=== PATIENT | male | born 1955 | race African-American/Black ===

== ENCOUNTER 2022-04-09 08:34 | Outpatient (CLI) | payer BC, SELFPAY ==
--- NOTE | ~2022-04-09 | US_ITS ---
US abdomen complete EXAMINATION: US Abdomen Complete INDICATION: Secondary thrombocytopenia PROCEDURE: Realtime High Resolution abdomen ultrasound. COMPARISON: No prior studies for comparison FINDINGS: Gallbladder within normal limits. No gallstones, pericholecystic fluid, gallbladder wall t hickening or biliary dilatation. Common bile duct measures 4 mm. There is hepatosplenomegaly. Fatty infiltration of the liver. Spleen measures 13.4 cm. Pancreas withi n normal limits. Renal echotexture is within normal limits bilaterally without hydronephrosis, contou r deforming mass or renal stone. There is a 1.6 cm right renal cyst. Right kidney measures 11 cm. Lef t kidney measures 12.2 cm. Visualized aspects of the aorta and IVC are within normal limits. Portal vein is patent. No sonograph ic Olivares's sign indicated by the technologist. IMPRESSION: 1: Fatty infiltration of the liver with hepatosplenomegaly. Reviewed, dictated and finalized at location B.
== END 2022-04-09 08:35 | disposition home or self-care (01) ==
PROVIDERS: PCP Internal Medicine Infectious Disease; Visit Provider Internal Medicine Hematology & Oncology
DX: N28.1 Cyst of kidney, acquired (principal); K76.0 Fatty (change of) liver, not elsewhere classified; D69.59 Other secondary thrombocytopenia
CPT/HCPCS: 76700

== ENCOUNTER 2022-10-15 09:59 | Outpatient (CLI) | payer BC, SELFPAY ==
[2022-10-15 10:31] LABS: Basophils Percent Auto 0.8 % (0.2-1.2); Eosinophils Absolute Auto 0.3 K/mm3 (0-0.3); Eosinophils Percent Auto 5.6 % (0-4.4); Hematocrit 44.3 % (42.0-52.0); Hemoglobin 14.6 g/dL (14.0-18.0); Immature Granulocyte Absolute 0.01 K/mm3 (0.00-0.031); Immature Granulocyte Percent A 0.2 % (0-0.5); Immature Platelet Fraction Pct 10.7 % (0.9-11.2); Lymphocytes Absolute Auto 1.16 K/mm3 (0.9-3.2); Mean Corpuscular Volume 88.1 fl (80-100); Monocytes Absolute Auto 0.3 K/mm3 (0.1-0.6); Monocytes Percent Auto 6.6 % (2.6-8.5); Neutrophils Percent Auto 62.8 % (45.5-73.1); Platelet Count Result 99 k/mm3 (150-375); Red Blood Count 5.03 M/mm3 (4.6-6.20); Red Cell Distribution Width 13.3 % (11.5-14.5); White Blood Count 4.8 K/mm3 (4.5-10.0)
[2022-10-15 10:34] LABS: Blood Urea Nitrogen 13 mg/dL (8-26); Carbon Dioxide 27 mmol/L (22-30); Chloride 103 mmol/L (98-109); Estimated Glomerular Filt Rate > 60; Glucose 141 mg/dL (70-105); Ionized Calcium (POC) 1.26 mmol/L (1.11-1.31); Potassium 4.4 mmol/L (3.5-4.9); Sodium 141 mmol/L (138-146)
[2022-10-15 12:34] LABS: Alanine Aminotransferase 35 U/L (6-50); Albumin Level 4.4 g/dL (3.5-5.1); Alkaline Phosphatase 165 U/L (38-126); Anion Gap 6 mmol/L (8-16); Aspartate Amino Transferase 31 U/L (17-59); Bilirubin,Total 0.5 mg/dL (0.2-1.3); Blood Urea Nitrogen 14 mg/dL (9-20); Calcium 9.2 mg/dL (8.4-10.2); Carbon Dioxide 30 mmol/L (22-30); Chloride 102 mmol/L (98-107); Estimated Glomerular Filt Rate > 60; Glucose 139 mg/dL (65-110); Potassium 4.3 mmol/L (3.4-5.0); Sodium 138 mmol/L (137-145)
[2022-10-15 16:55] LABS: Iron 63 ug/dL (49-181)
[2022-10-15 17:06] LABS: Percent Iron Saturation 22 % (20-50)
== END 2022-10-15 10:00 | disposition home or self-care (01) ==
LOC: ANHLAB 09:59
PROVIDERS: PCP Internal Medicine Infectious Disease; Visit Provider Internal Medicine Hematology & Oncology
DX: D69.59 Other secondary thrombocytopenia (principal)
CPT/HCPCS: 36415; 80047; 80053; 82728; 83540; 83550; 85025; 85055

== ENCOUNTER 2023-04-15 10:52 | Outpatient (CLI) | payer BC, SELFPAY ==
[2023-04-15 11:13] LABS: Basophils Percent Auto 0.8 % (0.2-1.2); Eosinophils Absolute Auto 0.1 K/mm3 (0-0.3); Eosinophils Percent Auto 1.9 % (0-4.4); Hematocrit 45.8 % (42.0-52.0); Hemoglobin 15.1 g/dL (14.0-18.0); Immature Granulocyte Absolute 0.02 K/mm3 (0.00-0.031); Immature Granulocyte Percent A 0.4 % (0-0.5); Lymphocytes Absolute Auto 1.38 K/mm3 (0.9-3.2); Lymphocytes Percent Auto 26.7 % (18.3-44.2); Mean Corpuscular Hemoglobin 29.5 pg (26-34); Mean Corpuscular Volume 89.6 fl (80-100); Mean Platelet Volume 12.2 fl (7.4-10.4); Monocytes Absolute Auto 0.4 K/mm3 (0.1-0.6); Monocytes Percent Auto 7.5 % (2.6-8.5); Neutrophils Absolute Auto 3.2 K/mm3 (1.3-6.7); Neutrophils Percent Auto 62.7 % (45.5-73.1); Platelet Count Result 104 k/mm3 (150-375); Red Blood Count 5.11 M/mm3 (4.6-6.20); Red Cell Distribution Width 12.7 % (11.5-14.5); White Blood Count 5.2 K/mm3 (4.5-10.0)
[2023-04-15 11:18] LABS: Blood Urea Nitrogen 15 mg/dL (8-26); Carbon Dioxide 25 mmol/L (22-30); Chloride 104 mmol/L (98-109); Estimated Glomerular Filt Rate > 60; Glucose 96 mg/dL (70-105); Ionized Calcium (POC) 1.16 mmol/L (1.11-1.31); Potassium 4.4 mmol/L (3.5-4.9); Sodium 140 mmol/L (138-146)
[2023-04-15 16:38] LABS: Alanine Aminotransferase 34 U/L (6-50); Albumin Level 4.3 g/dL (3.5-5.1); Alkaline Phosphatase 141 U/L (38-126); Anion Gap 6 mmol/L (8-16); Aspartate Amino Transferase 30 U/L (17-59); Bilirubin,Total 0.8 mg/dL (0.2-1.3); Blood Urea Nitrogen 16 mg/dL (9-20); Calcium 9.2 mg/dL (8.4-10.2); Carbon Dioxide 30 mmol/L (22-30); Chloride 103 mmol/L (98-107); Estimated Glomerular Filt Rate > 60; Glucose 90 mg/dL (65-110); Potassium 4.5 mmol/L (3.4-5.0); Sodium 139 mmol/L (137-145)
== END 2023-04-15 10:53 | disposition home or self-care (01) ==
LOC: ANHLAB 10:56
PROVIDERS: PCP Internal Medicine Infectious Disease; Visit Provider Internal Medicine Hematology & Oncology
DX: D69.59 Other secondary thrombocytopenia (principal)
CPT/HCPCS: 36415; 80047; 80053; 85025

== ENCOUNTER 2024-02-28 08:14 | Outpatient (CLI) | payer BC, SELFPAY ==
[2024-02-28 08:48] LABS: Basophils Absolute Auto 0.1 K/mm3 (0.0-0.1); Basophils Percent Auto 0.9 % (0.2-1.2); Eosinophils Absolute Auto 0.4 K/mm3 (0-0.3); Eosinophils Percent Auto 6.8 % (0-4.4); Hematocrit 44.3 % (42.0-52.0); Immature Granulocyte Absolute 0.01 K/mm3 (0.00-0.031); Immature Granulocyte Percent A 0.2 % (0-0.5); Lymphocytes Absolute Auto 1.44 K/mm3 (0.9-3.2); Lymphocytes Percent Auto 25.7 % (18.3-44.2); Mean Corpuscular HGB Conc 33.9 g/dl (32-36); Mean Corpuscular Hemoglobin 29.6 pg (26-34); Mean Corpuscular Volume 87.4 fl (80-100); Mean Platelet Volume 12.1 fl (7.4-10.4); Monocytes Absolute Auto 0.4 K/mm3 (0.1-0.6); Monocytes Percent Auto 6.8 % (2.6-8.5); Neutrophils Absolute Auto 3.4 K/mm3 (1.3-6.7); Neutrophils Percent Auto 59.6 % (45.5-73.1); Platelet Count Result 103 k/mm3 (150-375); Red Blood Count 5.07 M/mm3 (4.6-6.20); Red Cell Distribution Width 12.8 % (11.5-14.5); White Blood Count 5.6 K/mm3 (4.5-10.0)
[2024-02-28 09:28] LABS: Alanine Aminotransferase 25 U/L (6-50); Albumin Level 4.4 g/dL (3.5-5.1); Alkaline Phosphatase 153 U/L (38-126); Anion Gap 8 mmol/L (4-12); Aspartate Amino Transferase 25 U/L (17-59); Bilirubin,Total 0.9 mg/dL (0.2-1.3); Blood Urea Nitrogen 15 mg/dL (9-20); Calcium 9.7 mg/dL (8.4-10.2); Carbon Dioxide 27 mmol/L (22-30); Chloride 106 mmol/L (98-107); Estimated Glomerular Filt Rate > 60; Glucose 97 mg/dL (65-110); Potassium 4.2 mmol/L (3.4-5.0); Sodium 141 mmol/L (137-145)
== END 2024-02-28 08:15 | disposition home or self-care (01) ==
LOC: ANHLAB 08:31
PROVIDERS: PCP Internal Medicine Infectious Disease; Visit Provider Internal Medicine Hematology & Oncology
DX: D69.59 Other secondary thrombocytopenia (principal)
CPT/HCPCS: 36415; 80053; 85025

== ENCOUNTER 2024-12-02 15:41 | Outpatient (CLI) | payer BC, OTHER, SELFPAY ==
[2024-12-02 15:58] LABS: Basophils Percent Auto 0.7 % (0.2-1.2); Eosinophils Absolute Auto 0.3 K/mm3 (0-0.3); Eosinophils Percent Auto 4.9 % (0-4.4); Hematocrit 41.8 % (42.0-52.0); Immature Granulocyte Absolute 0.01 K/mm3 (0.00-0.031); Immature Granulocyte Percent A 0.2 % (0-0.5); Lymphocytes Percent Auto 22.8 % (18.3-44.2); Mean Corpuscular HGB Conc 33.5 g/dl (32-36); Mean Corpuscular Hemoglobin 29.3 pg (26-34); Mean Corpuscular Volume 87.4 fl (80-100); Mean Platelet Volume 12.1 fl (7.4-10.4); Monocytes Absolute Auto 0.4 K/mm3 (0.1-0.6); Neutrophils Absolute Auto 3.7 K/mm3 (1.3-6.7); Neutrophils Percent Auto 64.4 % (45.5-73.1); Platelet Count Result 106 k/mm3 (150-375); Red Blood Count 4.78 M/mm3 (4.6-6.20); Red Cell Distribution Width 12.9 % (11.5-14.5); White Blood Count 5.7 K/mm3 (4.5-10.0)
--- OUTSIDE RECORDS SUMMARY | 2024-12-02 16:25 | XMS_ITS | Data Portability ---
Author Organization [facility] Vivi Meriad Address [address] [facility] [place] [address] Care Team Providers Care Tester Equipment Name Role Phone DARIUSZ STEPHENS Cripple Chaser MARGARETH SOTO Primary Care Provider [phone] Assessment No assessment recorded. Plan of Treatment Reminders Order Date Submit Date Provider Last Modified By Organization Details Last Modified Time Details Appointments ANY 15 2024 09:00A Darrion Soto MD Not available Not available Not available Lab alkaline phosphata se, serum or plasma 2021 022 [facility], [address] [place] [address], [facility] [address], [place], [address], 08/04/2022 06:10:16 hemoglobi n + hematocri t, blood 2021 022 [facility], [address] [place] [address], [facility] [address], [place], [address], 08/04/2022 06:10:18 platelets , auto, blood 2021 022 [facility], [address] [place] [address], [address], [place], [address], 08/04/2022 06:10:17 HbA1c (hemoglob in A1c), blood 2021 022 [facility], [address] [place], [place] [address]melvina Steele, [facility] [address], [place], [address], 08/04/2022 06:10:17 lipid panel, serum 2021 022 [facility], [facility], [address], [place], [address], 08/04/2022 06:10:15 alkaline phosphata se, bone-spec ific, serum 2022 023 [facility], [facility] [address], [address], [place], [address], 02/22/2023 15:10:51 5' nucleotid ase 2022 023 [facility], [address] [place], [place] [address]melvina Steele, [address], [place], [address], 02/22/2023 15:10:53 gamma-glu tamyl transfera se (ggt), serum 2022 023 [facility], [address] [place], [place] [address]melvina Steele, [address], [place], [address], 02/22/2023 15:10:53 basic metabolic 1998 panel, serum or plasma 2022 023 [facility], [facility] [address], [address], [place], [address], 02/19/2023 19:09:10 PSA, total, serum or plasma 2022 023 [facility], [address] [place], [place] [address]melvina Steele, [address], [place], [address], 02/22/2023 15:10:54 HbA1c (hemoglob in A1c), blood 2022 023 [facility], [address] [place], [place] [address]melvina Cedric, [address], [place], [address], 02/22/2023 15:10:52 lipid panel, serum 2022 023 [facility], [address], [address], [place], [address], 02/19/2023 19:09:09 potassium , serum or plasma 2022 023 [facility], [address], [address], [place], [address], 09/03/2023 06:18:14 hemoglobi n + hematocri t, blood 2022 023 [facility], [address], [address], [place], [address], 09/03/2023 06:18:14 creatinin e, serum or plasma 2022 023 [facility], [address], [address], [place], [address], 09/03/2023 06:17:50 HbA1c (hemoglob in A1c), blood 2022 023 [facility], [address], [address], [place], [address], 09/03/2023 06:17:51 lipid panel, serum 2022 023 [facility], [address], [address], [place], [address], 09/03/2023 06:18:12 PSA, total, serum or plasma 2023 024 [facility], [address], [address], [place], [address], 03/04/2024 13:11:12 HbA1c (hemoglob in A1c), blood 2023 024 [facility], [facility] [address], [address], [place], [address], 03/04/2024 13:11:11 lipid panel, serum 2023 024 [facility], [address] [place] [address], [address], [place], [address], 03/04/2024 13:11:10 albumin/c reatinine , mass ratio, urine 2023 024 [facility], [address] [place], [place] [address]melvina Cedric, [address], [place], [address], 03/04/2024 13:11:09 HbA1c (hemoglob in A1c), blood 2023 024 [facility], [address] [place] [address], [address], [place], [address], 09/03/2024 06:20:18 lipid panel, serum 2023 024 [facility], [address] [place] [address], [address], [place], [address], 09/03/2024 06:20:17 Referral diabetic ophthalmo logy referral - HBA1C 6.2 2022 023 [email or web address], [address], [place], [address], 03/11/2023 11:28:24 Procedures None recorded. Surgeries None recorded. Imaging XR, hand - Pain, left thumb [address] [facility] ([facility]), [address], [place], [address], 02/20/2023 17:54:17 MRI, cervical spine, w/o contrast - Worsening neck pain with DDD of the cervical spine and disc space narrowing [address] ([facility]), [address], [place], [address], 11/26/2024 09:52:23 Medication Orders Transderm -Scop 1 mg over 3 days transderm al patch 2022 023 [id number], [address] , [place], [id number], 03/03/2024 09:56:35 Patient TargetsNo targets recorded. Patient Instructions Encounter Date Encounter Id Patient Instructions Last Modified By Organization Details Last Modified Time 07/31/2022 [id number] influenza (flu) vaccine: care instructions oajao Not available 07/31/2022 11:41:46 body mass index: care instructions oajao Not available 07/31/2022 11:22:57 learning about healthy weight oajao Not available 07/31/2022 11:22:57 Labs Follow up i n 5 months and PRN oajao Not available 07/31/2022 11:30:28 02/18/2023 [id number] thrombocytopenia : care instructions oajao Not available 02/18/2023 10:06:37 type 2 diabetes: care instructions oajao Not available 02/18/2023 10:06:37 Labs Ophthalmolo gy (Scheduled) X-ray Follow up in 6 months and PRN [email or web address] Not available 02/18/2023 10:26:46 09/02/2023 [id number] influenza (flu) vaccine: care instructions oajao Not available 09/02/2023 10:09:02 A healthy lifestyle: care instructions oajao Not available 09/02/2023 10:04:20 type 2 diabetes: care instructions oajao Not available 09/02/2023 10:02:02 body mass index: care instructions oajao Not available 09/02/2023 10:04:15 learning about healthy weight oajao Not available 09/02/2023 10:04:15 Labs Follow up i n 6 months and PRN oajao Not available 09/02/2023 10:16:31 03/03/2024 [id number] type 2 diabetes: care instructions oajao Not available 03/03/2024 10:04:08 Labs Follow up i n 6 months and PRN oajao Not available 03/03/2024 10:04:19 09/02/2024 [id number] A healthy lifestyle: care instructions oajao Not available 09/02/2024 10:26:02 cervical disc disease: care instructions oajao Not available 09/02/2024 10:29:53 Tetanus Immunization records from [facility] Follow up in 5 months and PRN oajao Not available 09/02/2024 10:32:01 Reason for Referral Diabetic Ophthalmology Refer ral for Type 2 diabetes mellitus without complication DM HBA1C 6.2 Referring Physician: Margareth Soto, Internal Medicine, Encounter Date: 02/18/2023 Results Created Date Observation Date Name Description Value Unit Range Abnormal Flag Note LastModifiedBy Organization Detail LastModifiedTime 08/02/20 22 08/03/2022 LIPID PANEL cholesterol, total 127 mg/dL 100-19 9 Not Available [facility] ([facility]) [address] [place], [address], 08/04/2022 06:10:15 08/02/20 22 08/03/2022 LIPID PANEL triglyceride s 104 mg/dL 0-149 Not Available [facility] ([facility]) [address] [place], [address], 08/04/2022 06:10:15 08/02/20 22 08/03/2022 LIPID PANEL HDL cholesterol 47 mg/dL >39 Not Available [facility] ([facility]) [address] [facility], [place], [address], 08/04/2022 06:10:15 08/02/20 22 08/03/2022 LIPID PANEL VLDL cholesterol mariella 19 mg/dL 5-40 Not Available [facility] ([facility]) [address] [place], [address], 08/04/2022 06:10:15 08/02/20 22 08/03/2022 LIPID PANEL LDL chol calc ([facility]) 61 mg/dL 0-99 Not Available [facility] ([facility]) [address] [facility], [place], [address], 08/04/2022 06:10:15 08/02/20 22 08/04/2022 HEMOG LOBIN A1C hemoglobin A1C 6.2 % 4.8-5. 6 above high normal Predi abete s: 5.7 - 6.4 Diabe lynette: >6.4 Glyce mercedes contr ol for adult s with diabe lynette: <7.0 Not Available [facility] ([facility]) [address] [facility], [place], [address], 08/04/2022 06:10:17 08/02/20 22 08/03/2022 HGB+H CT hemoglobin 14.9 g/dL 13.0-1 7.7 Not Available [facility] ([facility]) [address] [facility], [place], [address], 08/04/2022 06:10:18 08/02/20 22 08/03/2022 HGB[address]H [address] hematocrit 43.0 % 37.5-5 1.0 Not Available [facility] ([facility]) [address] [facility], [place], [address], 08/04/2022 06:10:18 08/02/20 22 08/03/2022 PLATE LET COUNT platelets 112 x10e3 /uL 150-45 0 below low normal Actua l plate let count may be somew hat highe r than repor jace due to aggre gatio n of plate lets in this sampl e. Not Available [facility] ([facility]) [address] [place], [address], 08/04/2022 06:10:17 08/02/20 22 08/03/2022 PLATE LET COUNT hematology comments: NOTE: Verif ied by micro scopi c exami natio n. Not Available [facility] ([facility]) [address] [facility] [place], [address], 08/04/2022 06:10:17 08/02/20 22 08/03/2022 ALKAL INE PHOSP HATAS E alkaline phosphatase 127 IU/L 44-121 above high normal Not Available [facility] ([facility]) [address] [facility] [place], [address], 08/04/2022 06:10:16 08/02/20 22 08/04/2022 DIABE LYNETTE PATIE NT EDUCA TION pdf . Not Available [facility] ([facility]) [address] [facility] [place], [address], 08/04/2022 06:10:16 02/20/20 23 02/19/2023 LIPID PANEL cholesterol, total 128.2 mg/dL 140.0- 200.0 below low normal Not Available [facility] ([facility]) [address] [place], [address], 02/19/2023 19:09:09 02/20/20 23 02/19/2023 LIPID PANEL triglyceride s 100 mg/dL <=150 Not Available [facility] ([facility]) [address] [place], [address], 02/19/2023 19:09:09 02/20/20 23 02/19/2023 LIPID PANEL HDL cholesterol 50.1 mg/dL 40.0-1 00.0 Not Available [facility] ([facility]) [address] [place], [address], 02/19/2023 19:09:09 02/20/20 23 02/19/2023 LIPID PANEL VLDL cholesterol mariella 20.00 mg/dL 5.00-4 0.00 Not Available [facility] ([facility]) [address] [place], [address], 02/19/2023 19:09:09 02/20/20 23 02/19/2023 LIPID PANEL LDL chol calc ([facility]) 59.5 Not Available [facility] ([facility]) [address] [place], [address], 02/19/2023 19:09:09 02/20/20 23 02/19/2023 BASIC METAB OLIC PANEL (7) glucose 98 mg/dL 65-99 Not Available [facility] ([facility]) [address] [place], [address], 02/19/2023 19:09:10 02/20/20 23 02/19/2023 BASIC METAB OLIC PANEL (7) BUN 19 mg/dL 8-26 Not Available [facility] ([facility]) [address] [place], [address], 02/19/2023 19:09:10 02/20/20 23 02/19/2023 BASIC METAB OLIC PANEL (7) creatinine 1.30 mg/dL 0.50-1 .40 Not Available [facility] ([facility]) [address] [place], [address], 02/19/2023 19:09:10 02/20/20 23 02/19/2023 BASIC METAB OLIC PANEL (7) eGFR 61 mL/mi n/1.7 3 >=60 Not Available [facility] ([facility]) [address] [place], [address], 02/19/2023 19:09:10 02/20/20 23 02/19/2023 BASIC METAB OLIC PANEL (7) BUN/creatini ne ratio 14.8 Not Available [facility] ([facility]) [address] [place], [address], 02/19/2023 19:09:10 02/20/20 23 02/19/2023 BASIC METAB OLIC PANEL (7) sodium 141.0 mmol/ L 136.0- 144.0 Not Available [facility] ([facility]) [address] [place], [address], 02/19/2023 19:09:10 02/20/20 23 02/19/2023 BASIC METAB OLIC PANEL (7) potassium 4.3 mmol/ L 3.5-5. 3 Not Available [facility] ([facility]) [address] [place], [address], 02/19/2023 19:09:10 02/20/20 23 02/19/2023 BASIC METAB OLIC PANEL (7) chloride 104 mmol/ l 101-11 1 Not Available [facility] ([facility]) [address] [place], [address], 02/19/2023 19:09:10 02/20/20 23 02/19/2023 BASIC METAB OLIC PANEL (7) carbon dioxide, total 23.6 mmol/ L 21.0-3 2.0 Not Available [facility] ([facility]) [address] [place], [address], 02/19/2023 19:09:10 02/20/20 23 02/21/2023 ALK PHOSP HATAS E, BONE SPECI FIC alk phosphatase, bone specific 11.6 ug/L 7.6-25 .1 Not Available [facility] ([facility]) [address] [place], [address], 02/22/2023 15:10:51 02/20/20 23 02/21/2023 ALK PHOSP HATAS E, BONE SPECI FIC pdf . Not Available [facility] ([facility]) [address] [place], [address], 02/22/2023 15:10:51 02/20/20 23 02/20/2023 HEMOG LOBIN A1C hemoglobin A1C 5.9 % 4.8-5. 6 above high normal Predi abete s: 5.7 - 6.4 Diabe lynette: >6.4 Glyce mercedes contr ol for adult s with diabe lynette: <7.0 Not Available [facility] ([facility]) [address] [facility], [place], [address], 02/22/2023 15:10:52 02/20/2002/22/2023 5' NUCLE OTIDA SE 5' nucleotidase 4 IU/L 0-11 Not Available [facility] ([facility]) [address] [facility], [place], [address], 02/22/2023 15:10:53 02/20/2002/20/2023 GGT GGT 39 IU/L 0-65 Not Available [facility] ([facility]) [address] [facility], [place], [address], 02/22/2023 15:10:53 02/20/2002/20/2023 PROST ATE-S PECIF IC AG prostate specific Ag 1.5 NG/mL 0.0-4. 0 Cristin ECLIA metho dolog y. Accor ding to the Ameri can Urolo gical Assoc iatio n, Serum PSA shoul d decre ase and remai n at undet ectab le level s after radic al prost atect danyelle. The AUA defin es bioch emica l recur rence as an initi al PSA value 0.2 ng/mL or great er follo wed by a subse quent confi rmato ry PSA value 0.2 ng/mL or great er. Value s obtai lilibeth with diffe rent assay metho ds or kits canno t be used inter [place] eably . Resul ts canno t be inter prete d as absol [place] evide nce of the prese nce or absen ce of patti topete se. Not Available [facility] ([facility]) [address] [facility], [place], [address], 02/22/2023 15:10:54 02/20/2002/21/2023 DIABE LYNETTE PATIE NT EDUCA TION pdf NOT APPLIC ABLE Not Available [facility] ([facility]) [address] [facility], [place], [address], 02/22/2023 15:10:52 02/20/2002/21/2023 DIABE LYNETTE PATIE NT EDUCA TION pdf .* Not Available [facility] ([facility]) [address] [facility], [place], [address], 02/22/2023 06:15:26 02/20/20 23 02/20/2023 DIABE LYNETTE PATIE NT EDUCA TION pdf .* Not Available [facility] ([facility]) [address] [facility], [place], [address], 02/20/2023 06:12:27 02/20/2002/19/2023 DIABE LYNETTE PATIE NT EDUCA TION pdf . Not Available [facility] ([facility]) [address] [facility], [place], [address], 02/19/2023 19:09:11 09/02/2009/03/2023 CREAT ININE creatinine 1.14 mg/dL 0.76-1 .27 Not Available [facility] & [address], [address], 09/03/2023 06:17:50 09/02/2009/03/2023 CREAT ININE eGFR 71 mL/mi n/1.7 3 >59 Not Available [facility] & [address], [address], 09/03/2023 06:17:50 09/02/2009/03/2023 HEMOG LOBIN A1C hemoglobin A1C 6.1 % 4.8-5. 6 above high normal Predi abete s: 5.7 - 6.4 Diabe lynette: >6.4 Glyce mercedes contr ol for adult s with diabe lynette: <7.0 Not Available [facility] [address] [place] [address], [address], 09/03/2023 06:17:51 09/02/20 23 09/02/2023 LIPID PANEL cholesterol, total 144 mg/dL 100-19 9 Not Available [address], [address], 09/03/2023 06:18:12 09/02/20 23 09/02/2023 LIPID PANEL triglyceride s 90 mg/dL 0-149 Not Available [address], [address], 09/03/2023 06:18:12 09/02/20 23 09/02/2023 LIPID PANEL HDL cholesterol 51 mg/dL 40-999 Not Available [address], [address], 09/03/2023 06:18:12 09/02/20 23 09/02/2023 LIPID PANEL VLDL cholesterol mariella 18 mg/dL 5-40 Not Available [address], [address], 09/03/2023 06:18:12 09/02/20 23 09/02/2023 LIPID PANEL LDL chol calc ([facility]) 87 mg/dL 0-99 Not Available [address], [address], 09/03/2023 06:18:12 09/02/20 23 09/02/2023 POTAS SIUM potassium 4.3 mmol/ L 3.5-5. 2 Not Available [address], [address], 09/03/2023 06:18:13 09/02/20 23 09/02/20[address] hemoglobin 15.4 g/dL 13.0-1 7.7 Not Available [address], [address], 09/03/2023 06:18:14 09/02/20 23 09/02/2023 H[address] hematocrit 46.8 % 37.5-5 1.0 Not Available [facility] [address] [place] [address], [address], 09/03/2023 06:18:14 09/02/2009/03/2023 DIABE LYNETTE PATIE NT EDUCA TION pdf NOT APPLIC ABLE Not Available [address], [address], 09/03/2023 06:17:49 09/02/20 23 09/03/2023 DIABE LYNETTE PATIE NT EDUCA TION pdf . Not Available [address], [address], 09/03/2023 06:18:13 03/03/20 24 03/04/2024 ALBUM IN/CR EATIN INE RATIO ,URIN E creatinine, urine 62.3 mg/dL notest ab. Not Available [facility] ([facility]) [address] [place], [address], 03/04/2024 13:11:09 03/03/20 24 03/04/2024 ALBUM IN/CR EATIN INE RATIO ,URIN E albumin, urine <3.0 ug/mL notest ab. Not Available [facility] ([facility]) [address] [place], [address], 03/04/2024 13:11:09 03/03/20 24 03/04/2024 ALBUM IN/CR EATIN INE RATIO ,URIN E alb/creat ratio <5 Niki l: 0 - 29 Moder ately incre ased: 30 - 300 Sever donn incre ased: >300 Not Available [facility] ([facility]) [address] [place], [address], 03/04/2024 13:11:09 03/03/20 24 03/04/2024 LIPID PANEL cholesterol, total 122 mg/dL 100-19 9 Not Available [facility] ([facility]) [address] [facility] [place], [address], 03/04/2024 13:11:10 03/03/20 24 03/04/2024 LIPID PANEL triglyceride s 90 mg/dL 0-149 Not Available [facility] ([facility]) [address] [facility], [place], [address], 03/04/2024 13:11:10 03/03/20 24 03/04/2024 LIPID PANEL HDL cholesterol 51 mg/dL >39 Not Available [facility] ([facility]) [address] [facility], [place], [address], 03/04/2024 13:11:10 03/03/20 24 03/04/2024 LIPID PANEL VLDL cholesterol mariella 17 mg/dL 5-40 Not Available [facility] ([facility]) [address] [place], [address], 03/04/2024 13:11:10 03/03/20 24 03/04/2024 LIPID PANEL LDL chol calc ([facility]) 54 mg/dL 0-99 Not Available [facility] ([facility]) [address] [facility], [place], [address], 03/04/2024 13:11:10 03/03/20 24 03/04/2024 HEMOG LOBIN A1C hemoglobin A1C 5.9 % 4.8-5. 6 above high normal Predi abete s: 5.7 - 6.4 Diabe lynette: >6.4 Glyce mercedes contr ol for adult s with diabe lynette: <7.0 Not Available [facility] ([facility]) [address] [place], [address], 03/04/2024 13:11:11 03/03/20 24 03/04/2024 PROST ATE-S PECIF IC AG prostate specific Ag 1.5 NG/mL 0.0-4. 0 Cristin ECLIA metho dolog y. Accor ding to the Ameri can Urolo gical Assoc iatio n, Serum PSA shoul d decre ase and remai n at undet ectab le level s after radic al prost atect danyelle. The AUA defin es bioch emica l recur rence as an initi al PSA value 0.2 ng/mL or great er follo wed by a subse quent confi rmato ry PSA value 0.2 ng/mL or great er. Value s obtai lilibeth with diffe rent assay metho ds or kits canno t be used inter [place] eably . Resul ts canno t be inter prete d as absol [place] evide nce of the prese nce or absen ce of [facility] se. Not Available [facility] ([facility]) [address] [place], [address], 03/04/2024 13:11:12 09/02/20 24 09/03/2024 LIPID PANEL cholesterol, total 120 mg/dL 100-19 9 Not Available [facility] ([facility]) [address] [place], [address], 09/03/2024 06:20:17 09/02/20 24 09/03/2024 LIPID PANEL triglyceride s 75 mg/dL 0-149 Not Available [facility] ([facility]) [address] [place], [address], 09/03/2024 06:20:17 09/02/20 24 09/03/2024 LIPID PANEL HDL cholesterol 51 mg/dL >39 Not Available [facility] ([facility]) [address] [place], [address], 09/03/2024 06:20:17 09/02/20 24 09/03/2024 LIPID PANEL VLDL cholesterol mariella 15 mg/dL 5-40 Not Available [facility] ([facility]) [address] [place], [address], 09/03/2024 06:20:17 09/02/20 24 09/03/2024 LIPID PANEL LDL chol calc ([facility]) 54 mg/dL 0-99 Not Available [facility] ([facility]) [address], [place], [address], 09/03/2024 06:20:17 09/02/20 24 09/02/2024 HEMOG LOBIN A1C hemoglobin A1C 6.1 % 4.8-5. 6 above high normal Predi abete s: 5.7 - 6.4 Diabe lynette: >6.4 Glyce mercedes contr ol for adult s with diabe lynette: <7.0 Not Available [facility] ([facility]) [address], [place], [address], 09/03/2024 06:20:18 07/19/20 22 07/10/2022 sleep study , diagn ostic (PROC ) No observ ation record ed. [facility] [address], [place], [address], 07/31/2022 11:29:06 02/21/20 23 02/19/2023 XR, hand No observ ation record ed. [facility] [address] [place], [address], 09/02/2023 09:59:15 03/31/20 24 03/27/2024 trans -thor acic echoc ardio gram (TTE) (PROC ) No observ ation record ed. [facility] [address], [place], [address], 09/02/2024 10:22:08 04/20/20 24 04/20/2024 myoca rdial perfu laura study w/ eject ion fract ion (PROC ) No observ ation record ed. [facility] [address], [place], [address], 09/02/2024 10:22:08 04/20/20 24 04/20/2024 cardi ac stres s test No observ ation record ed. [facility] [address], [place], [address], 09/02/2024 10:22:08 Result Notes None recorded. Problems Name Problem SNOMED Code Status Onset Date Resolution Date Notes Provider Name and Address Organization Details Recorded Time Obstructiv e sleep apnea syndrome 83862489 Active 2018 Not Available [facility] 3 18:17:50 History of syncope 7050571922236 09 Active 2018 Not Available [facility] 3 18:17:50 Adenomatou s polyp of colon 524914604 Active 2018 Not Available [facility] 3 18:17:50 Retrolisth esis 741995723 Active 2020 Not Available [facility] 3 18:17:50 Thrombocyt openic disorder 151615774 Active 2021 Not Available [facility] 3 18:17:50 Polyp of colon 57414718 Active Not Available [facility] 3 18:17:50 Essential hypertensi on 35162039 Active Not Available [facility] 3 18:17:50 Diabetes mellitus 09276701 Active Not Available [facility] 3 18:17:50 Abdominal pain 09463936 Active Not Available [facility] 3 18:17:50 Benign prostatic hyperplasi a 809537482 Active Not Available [facility] 3 18:17:50 Atrial fibrillati on 94845504 Active Not Available [facility] 3 18:17:50 Non-alcoho lic fatty liver 418574155 Active Not Available [facility] 3 18:17:50 Disorder of lipid metabolism 961561081 Active Not Available [facility] 3 18:17:50 Genital herpes simplex 80779889 Active Not Available [facility] 3 18:17:50 Impotence of organic origin Active Not Available [facility] 3 18:17:50 Sleep apnea 65674452 Active Not Available [facility] 3 18:17:50 Chest pain 56676933 Active Not Available [facility] 3 18:17:50 Numbness of foot 765598069 Active Not Available [facility] 3 18:17:50 Platelet count below reference range 458757740 Active Not Available [facility] 3 18:17:50 Type 2 diabetes mellitus without complicati on 365203877 Active Not Available [facility] 3 18:17:50 Problem Notes None recorded. Procedures Surgical History Date Name Laterality Status Provider Name and Address Organization Details Recorded Time 03/03/20 24 Diabetic Foot Exam completed Margareth oSto MD Attn: Accounting,[address] [facility], [place], [address], [facility] - [place] 03/03/2024 10:48:59 09/19/20 20 Colonoscopy completed Margareth Soto MD Attn: Accounting,[address] [facility], [place], [address], [facility] - [place] 03/07/2021 12:36:46 04/18/20 16 colonoscopy completed Margareth Soto MD Attn: Accounting,[address] [facility], [place], [address], [facility] - [place] 02/01/2020 09:40:15 08/24/20 11 colonoscopy completed Margareth Soto MD Attn: Accounting,[address] [facility], [place], [address], [facility] - [place] 02/01/2020 09:36:04 laparoscopic appendectomy completed Latrice Perez [place] - [place] 03/10/2019 15:21:18 Imaging Results Imaging Date Name Status LastModified by Organization Details LastModified Time 07/10/2022 sleep study, diagnostic (PROC) completed [facility] [address], [place], [address], 07/31/2022 11:29:06 02/19/2023 XR, hand completed [facility] [address] [place], [address], 09/02/2023 09:59:15 03/27/2024 trans-thoracic echocardiogram (TTE) (PROC) completed [facility] [address], [place], [address], 09/02/2024 10:22:08 04/20/2024 myocardial perfusion study w/ ejection fraction (PROC) completed [facility] [address], [place], [address], 09/02/2024 10:22:08 04/20/2024 cardiac stress test completed [facility] [address], [place], [address], 09/02/2024 10:22:08 Procedure Notes None recorded. Medical Equipment None Reported. Allergies Allergen ID Allergen Name Allergen Category Reaction Reaction Severity Criticality Documentation Date Start Date Code Code System Note Provider Name and Address Organization Details Recorded Time [id number] No known allergy (situatio n) Not available Not available Not available Not available 09/02/2023 [id number] SNOMED Not Available Not Available Not Available No known drug allergies Medications Name Sig Start Date Stop Date Status Note LastModified by Organization Details LastModified Time Prescriptio n - New active Not Available Not Available Not Available Prescriptio n - Prior Authorizati on Request active Not Available Not Available N ot Available atorvastati n 40 mg tablet TAKE 1 TABLET DAILY AT BEDTIME (TO REPLACE SIMVASTAT IN) active Not Available Not Available No t Available metformin 500 mg tablet TAKE 1 TABLET TWICE A DAY active Not Available Not Available No t Available prednisone 10 mg tablet TAKE 1 TABLET BY MOUTH THREE TIMES DAILY FOR 3 DAYS 1 TABLET TWICE DAILY FOR 2 DAYS 1 TABLET EVERY DAY FOR 1 DAY 09/02 completed Not Available Not Available Not Available Toprol XL 25 mg tablet,exte nded release TAKE 1 TABLET DAILY 04/14 completed Not Available Not Available Not Available valacyclovi r 1 gram tablet One po daily 02/13 completed Not Available Not Available Not Available hydrocodone 5 mg-acetamin ophen 325 mg tablet 01/12 completed Not Available Not Available Not Available prednisone 20 mg tablet 01/31 completed Not Available Not Available Not Available Generlac 10 gram/15 mL oral solution active Not Available Not Available Not Available acetaminoph en 300 mg-codeine 30 mg tablet 02/17 completed Not Available Not Available Not Available ciprofloxac in 500 mg tablet Take 1 tablet twice a day by oral route for 7 days. 09/01 completed Not Available Not Available Not Available peg-electro lyte solution 420 gram oral solution 10/04 completed Not Available Not Available Not Available oxycodone-a cetaminophe n 5 mg-325 mg tablet 03/10 completed Not Available Not Available Not Available tamsulosin 0.4 mg capsule TAKE 1 CAPSULE DAILY 2023 active Not Available Not Available Not Avai lable [employer] Ultra Test strips active Not Available Not Available Not Available cephalexin 500 mg capsule TAKE BY MOUTH FOUR TIMES DAILY 09/02 completed Not Available Not Available Not Available simvastatin 20 mg tablet TAKE 1 TABLET DAILY 03/10 completed Not Available Not Available Not Available acyclovir 5 % topical ointment active Not Available Not Available Not Available clotrimazol e-betametha sone 1 %-0.05 % topical cream APPLY TO THE AFFECTED AND SURROUNDI NG AREAS OF SKIN BY TOPICAL ROUTE 2 TIMES PER DAY IN THE MORNING AND EVENING FOR 2 WEEKS 01/31 completed Not Available Not Available Not Available omeprazole 20 mg capsule,del ayed release TAKE 1 CAPSULE BY MOUTH EVERY DAY DIRECTED active Not Available Not Available No t Available bisacodyl 5 mg tablet,junior yed release TAKE 6 TABLETS BY MOUTH AT 9 AM ON 09/18. 02/13 completed Not Available Not Available Not Available lisinopril 5 mg tablet TAKE 1 TABLET DAILY active Not Available Not Available No t Available scopolamine 1 mg over 3 days transdermal patch APPLY 1 PATCH TOPICALLY TO THE SKIN EVERY 72 HOURS FOR 12 DAYS NEEDED 03/03 completed Not Available Not Available Not Available amoxicillin 875 mg-potassiu m clavulanate 125 mg tablet Take 1 tablet every 12 hours by oral route as directed for 7 days. 01/31 completed Not Available Not Available Not Available tadalafil 5 mg tablet TAKE 1 TABLET DAILY active Not Available Not Available No t Available Cialis 20 mg tablet Take 1 tablet every 72 hours by oral route as needed for 30 days. 10/04 completed Not Available Not Available Not Available metoprolol tartrate 25 mg tablet active Not Available Not Available No t Available aspirin 81 mg po daily 07/31 completed Not Available Not Available Not Available iron active Not Available Not Availa ble Not Available Vitamin D3 active Not Available Not Av ailable Not Available peg 3350-electr olytes 236 gram-22.74 gram-6.74 gram-5.86 gram solution 02/13 completed Not Available Not Available Not Available Flowflex COVID-19 Antigen Home Test kit 02/18 completed Not Available Not Available Not Available Vitals Date Recorded Body height Provider Name an d Address Organization Details Last Updated DateTime 07/31/2022 172.72 cm [address]rice Perez MA [facility] 022 11:05:54 Date Recorded Body mass index (BMI) Body weight Provider Name and Address Organization Details Last Updated DateTime 07/31/2022 37.4 kg/m2 769787.72 g Latrice Perez MA [facility] 07/31/2022 11:06:01 Date Recorded Respiratory rate Provider Name a nd Address Organization Details Last Updated DateTime 07/31/2022 14 /min Latrice Powersver JAEL [facility] 022 11:08:58 Date Recorded Heart rate Provider Name an d Address Organization Details Last Updated DateTime 07/31/2022 80 /min Latrice AnaJAEL rogers [facility] 022 11:09:06 Date Recorded Oxygen saturation Oxygen saturation in Arterial blood by Pulse oximetry Provider Name and Address Organization Details Last Updated DateTime 07/31/2022 96 % 96 % Latrice Ana JAEL [facility] 07/31/2022 11:09:09 Date Recorded Body temperature Provider Name a nd Address Organization Details Last Updated DateTime 07/31/2022 98.6 [degF] Latrice AnaJAEL rogers [facility] 2021 11:09:52 Date Recorded Body height Provider Name an d Address Organization Details Last Updated DateTime 02/18/2023 172.[address] [facility] 023 09:45:29 Date Recorded Body mass index (BMI) Body weight Provider Name and Address Organization Details Last Updated DateTime 02/18/2023 38.6 kg/m2 818010.[address] [facility] 02/18/2023 09:45:38 Date Recorded Oxygen saturation Oxygen saturation in Arterial blood by Pulse oximetry Provider Name and Address Organization Details Last Updated DateTime 02/18/2023 98 % 98 % JAEL Pride [facility] 02/18/2023 09:48:11 Date Recorded Heart rate Respiratory rate Provider N alexandra and Address Organization Details Last Updated DateTime 02/18/2023 64 /min 14 /min Latrice [place] [facility] 02/18/2023 09:48:14 Date Recorded Body height Provider Name an d Address Organization Details Last Updated DateTime 09/02/2023 172.72 cm Latrice Perez MA [facility] 023 09:44:02 Date Recorded Body mass index (BMI) Body weight Provider Name and Address Organization Details Last Updated DateTime 09/02/2023 38.3 kg/m2 768452.56 g Latrice Perez MA [facility] 09/02/2023 09:45:48 Date Recorded Oxygen saturation Oxygen saturation in Arterial blood by Pulse oximetry Provider Name and Address Organization Details Last Updated DateTime 09/02/2023 96 % 96 % Latrice [place] [facility] 09/02/2023 09:47:02 Date Recorded Heart rate Provider Name an d Address Organization Details Last Updated DateTime 09/02/2023 64 /min Latrice [place] [facility] 023 09:47:04 Date Recorded Respiratory rate Provider Name a nd Address Organization Details Last Updated DateTime 09/02/2023 16 /min Latrice AnaJAEL rogers [facility] 023 09:47:05 Date Recorded Body height Provider Name an d Address Organization Details Last Updated DateTime 03/03/2024 172.72 cm Latrice Perez MA [facility] 024 09:30:15 Date Recorded Body mass index (BMI) Body weight Provider Name and Address Organization Details Last Updated DateTime 03/03/2024 37.6 kg/m2 596473.32 g JAEL Pride [facility] 03/03/2024 09:30:23 Date Recorded Respiratory rate Provider Name a nd Address Organization Details Last Updated DateTime 03/03/2024 18 /min Latrice AnaJAEL rogers [facility] 024 09:31:58 Date Recorded Oxygen saturation Oxygen saturation in Arterial blood by Pulse oximetry Provider Name and Address Organization Details Last Updated DateTime 03/03/2024 97 % 97 % Latrice Perez MA [facility] 03/03/2024 09:32:09 Date Recorded Heart rate Provider Name an d Address Organization Details Last Updated DateTime 03/03/2024 60 /min Latrice Perez MA [facility] 024 09:32:11 Date Recorded Body height Provider Name an d Address Organization Details Last Updated DateTime 09/02/2024 172.72 cm Norma Hansen MA [facility] 09/02/2024 09:55:31 Date Recorded Body mass index (BMI) Body weight Provider Name and Address Organization Details Last Updated DateTime 09/02/2024 36.9 kg/m2 842725.15 g Norma Hansen MA [facility] 09/02/2024 10:01:05 Date Recorded Heart rate Provider Name an d Address Organization Details Last Updated DateTime 09/02/2024 66 /min Norma Hansen MA [facility] 08/06 10:04:34 Date Recorded Oxygen saturation Oxygen saturation in Arterial blood by Pulse oximetry Provider Name and Address Organization Details Last Updated DateTime 09/02/2024 97 % 97 % Norma Hansen MA [facility] 09/02/2024 10:04:36 Date Recorded Systolic blood pressure Diastolic blood pressure Provider Name and Address Organization Details Last Updated DateTime 07/31/2022 124 mm[Hg] 80 mm[Hg] Latrice Perez MA [facility] 07/31/2022 11:08:51 Date Recorded Systolic blood pressure Diastolic blood pressure Provider Name and Address Organization Details Last Updated DateTime 02/18/2023 120 mm[Hg] 76 mm[Hg] Latrice Perez MA [facility] 02/18/2023 09:48:10 Date Recorded Systolic blood pressure Diastolic blood pressure Provider Name and Address Organization Details Last Updated DateTime 09/02/2023 114 mm[Hg] 80 mm[Hg] Latrice Perez MA [facility] 09/02/2023 09:46:49 Date Recorded Systolic blood pressure Diastolic blood pressure Provider Name and Address Organization Details Last Updated DateTime 03/03/2024 120 mm[Hg] 84 mm[Hg] Latrice ePrez MA [facility] 03/03/2024 09:31:56 Date Recorded Systolic blood pressure Diastolic blood pressure Provider Name and Address Organization Details Last Updated DateTime 09/02/2024 126 mm[Hg] 72 mm[Hg] Norma Hansen MA [facility] 09/02/2024 10:04:23 Social History Question Answer Notes LastModified by Organizat ion Details LastModified Time Tobacco Smoking Status Former Smoker February JAEL [place], [place] - [facility] 02/16/2015 10:15:57 Do You Have An Advance Directive? No Information not available 02/16/2015 What Is Your Level Of Alcohol Consumption? None Information not available 02/16/2015 Are You Blind Or Do You Have Difficulty Seeing? No Information not available 03/06/2021 What Is Your Level Of Caffeine Consumption? Occasional Information not available 02/13/2021 How Much Tobacco Do You Chew? None Information not available 02/16/2015 In The 14 Days Before Symptom Onset, Have You Had Close Contact With A Laboratory-confi rmed COVID-19 While That Case Was Ill? No Information not available 02/13/2021 In The 14 Days Before Symptom Onset, Have You Had Close Contact With A Person Who Is Under Investigation For COVID-19 While That Person Was Ill? No Information not available 02/13/2021 Have You Been To An Area Known To Be High Risk For COVID-19? Yes Information not available 02/13/2021 Are You Deaf Or Do You Have Serious Difficulty Hearing? No Information not available 03/06/2021 What Type Of Diet Are You Following? 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 No Information not available 02/16/2015 Hard Of Hearing Or Deaf In One Or Both Ears? No Information not available 02/16/2015 Legally Blind In One Or Both Eyes? No Information not available 02/16/2015 Marital Status Informatio n not available 02/16/2015 What Was The Date Of Your Most Recent Tobacco Screening? 09/02/2024 Information not available 09/02/2024 What Is Your Current Pack Years? 10packyears Information not available 09/04/2021 Performs Monthly Self-breast Exam? No Information not available 02/16/2015 Do You Use Your Seat Belt Or Car Seat Routinely? Yes Information not available 03/06/2021 Seat Belts Used Routinely Yes Information not available 02/16/2015 Smoke Alarm In Home Yes Information not available 02/16/2015 At What Age Did You Start Smoking Tobacco? 19 Information not available 02/13/2021 How Much Tobacco Do You Smoke? No Information not available 04/15/2017 General Stress Level Medium Information not available 02/16/2015 Do You Use Any Illicit Or Recreational Drugs? No Information not available 02/13/2021 Do You Use Sunscreen Routinely? No Information not available 02/16/2015 Has Tobacco Cessation Counseling Been Provided? Yes Information not available 09/04/2021 On What Date Was Tobacco Cessation Counseling Provided? 09/02/2024 Jeannette Answered No To The Tobacco Cessation Counseling Provided Question On 03/10/2019. Information not available 09/02/2024 How Many Years Have You Smoked Tobacco? 5 Information not available 02/13/2021 Do You Or Have You Ever Used Any Other Forms Of Tobacco Or Nicotine? No Information not available 02/13/2021 Sex: Unknown Functional Status Question Answer Note LastModified by Organization D etails LastModified Time Are you able to care for yourself? Yes Information n ot available 03/06/2021 Mental Status None recorded. Family History Relationship Description Onset Age of this Age Resolved Age Notes LastModified by Organization Details LastModified Time Mother Hypertensive disorder asavala Not available 2014 10:15:57 Father Hypertensive disorder asavala Not available 2014 10:15:57 Sister Hypertensive disorder asavala Not available 2014 10:15:57 Brother Depressive disorder asavala Not available 2014 10:15:57 Medical History Condition Response High Blood Pressure Y High Cholesterol N Diabetes Y Immunizations Vaccine Type Date Status Note Provider Nam e and Address Organization Details Recorded Time COVID-19, mRNA, LNP-S, PF, 100 mcg/0.5mL dose or 50 mcg/0.25mL dose 1 completed Not Available [facility] 09/04/2023 18:17:51 COVID-19, mRNA, LNP-S, PF, 100 mcg/0.5mL dose or 50 mcg/0.25mL dose 1 completed Not Available [facility] 09/04/2023 18:17:51 COVID-19, mRNA, LNP-S, PF, 100 mcg/0.5mL dose or 50 mcg/0.25mL dose 1 completed Not Available [facility] 09/04/2023 18:17:51 COVID-19, mRNA, LNP-S, PF, 100 mcg/0.5mL dose or 50 mcg/0.25mL dose 2 completed Not Available [facility] 09/04/2023 18:17:51 Pneumococcal conjugate PCV20, polysaccharide PMD126 conjugate, adjuvant, PF 2 completed Not Available [facility] 09/04/2023 18:17:51 COVID-19, mRNA, LNP-S, bivalent, PF, 50 mcg/0.5 mL or 25mcg/0.25 mL dose 2 completed Not Available [facility] 09/04/2023 18:17:51 Influenza, split virus, quadrivalent, preservative 6 completed Not Available [facility] 11/21/2019 02:32:57 zoster recombinant 3 completed Not Available [facility] 09/04/2023 18:17:51 zoster recombinant 3 completed Not Available [facility] 09/04/2023 18:17:51 COVID-19, mRNA, LNP-S, PF, 50 mcg/0.5 mL 3 completed Not Available [facility] 09/04/2023 18:17:51 Influenza, adjuvanted, trivalent, PF 4 completed Margareth Soto MD Attn: Accounting[address] [facility], [place], [address], [place] [facility] 09/02/2024 10:14:36 COVID-19, mRNA, LNP-S, PF, 50 mcg/0.5 mL 4 completed Margareth Soto MD Attn: Accounting[address] [facility], [place], [address], [place] [facility] 09/02/2024 10:14:37 Tdap 4 completed Not Available [facility] 09/04/2023 18:17:51 Influenza, split virus, quadrivalent, preservative 7 completed Not Available [facility] 11/21/2019 02:40:56 pneumococcal polysaccharide PPV23 8 completed Not Available [facility] 11/21/2019 02:49:55 Influenza, split virus, quadrivalent, PF 8 completed Not Available [facility] 11/21/2019 02:49:14 Influenza, split virus, quadrivalent, preservative 9 completed Not Available [facility] 11/21/2019 02:38:43 Influenza, split virus, quadrivalent, preservative 0 completed JAEL Pride, [place] [facility] 08/15/2020 10:35:44 Influenza, split virus, quadrivalent, preservative 1 completed Margareth Soto MD Attn: Accounting[address] [facility], [place], [address], [place] [facility] 09/04/2021 10:55:00 Influenza, split virus, quadrivalent, preservative 2 completed Margareth oSto MD Attn: Accounting[address] [facility], [place], [address], [place] [facility] 07/31/2022 11:42:02 Influenza, high-dose, quadrivalent, PF 3 completed JAEL Pride, [place] [facility] 09/02/2023 11:22:47 Influenza, split virus, trivalent, preservative 5 completed Not Available [facility] 11/21/2019 02:50:25 Past Encounters Encounter ID Performer Location Encounter Start Date Encounter Closed Date Diagnosis/Indication Diagnosis SNOMED-CT Code Diagnosis ICD10 Code Diagnosis Note [id number] [facility] [address] [place] [phone] 02/16/2015 09:50:42 02/16/2015 11:10:43 Polyp of colon [id number] Last colonoscop y was in 2010, we need to find out when he needs a repeat colonoscop y Essential hypertension 04284182 Diabetes mellitus 71500705 Abdominal pain 83659965 S/p RLQ abdominal pain with a need for an ER visit 11/09/2014, CT scan confirmed a hiatal hernia, fatty liver, prostatic enlargemen t and diverticul osis Benign pro static hyperplasia 814356852 This was discussed in detail, Cialis 5mg po daily Atrial fibrillation 58166093 History of paroxysmal A.Fib, he follows up with the cardiologi st, Dr. Dariusz Stephens Non-alcoho lic fatty liver 020972366 [place] Disorder o f lipid metabolism 289795134 Genital he rpes simplex 26356626 On Acyclovir for prophylaxi s Impotence of organic origin 906305723 Cialis 5mg po daily for BPH/ED, side effects were discussed in detail [id number] MD Lenora Bronson (Adult Med) [address] [place] [phone] 04/08/2015 11:51:40 04/08/2015 12:27:44 Sleep apnea 93134352 On Bipap Non-alcoho lic fatty liver 999352824 US confirms hepatic steatosis Impotence of organic origin 258746200 Cialis 5mg po daily for BPH/ED, was effective, however his insurance company limits him to 4/month Diabetes mellitus 83129810 Stable, diet controlled Medication monitoring [id number] Lenora (Adult Med) [address] [place] [phone] 0 08/08/2015 10:16:18 08/08/2015 12:55:05 Chest pain 24758430 R07.9 L sided chest pain which he initially noticed on waking up about a month ago, the intensity has decreased and it now only occurs when he moves a certain way or lifts his grand child. He saw his cardiologi in February of this year and he says that he had a negative stress test. His 6 month follow up is due with her and I think that he should be seen, although I agree that there may be a muskuloske mary component. CXR and schedule a follow up appointmen t with Dr. Raúl Stephens ER with chest pain Numbness of foot 6458238 00 R20.0 I doubt that this is from his diabetes, most likely from his work boots Diabetes mellitus 020594 09 E11.9 Stable, diet controlled Platelet c ount below reference range 693928324 D69.6 Chronic thrombocyt openia Non-alcoho lic fatty liver 862283980 K76.0 US confirms hepatic steatosis [id number] MD Lenora Bronson (Adult Med) [address] [place] [address] 08/23/2015 13:53:34 08/23/2015 14:51:46 Abdominal pain 16276709 R10.9 S/p ER evaluation with LLQ abdominal pain, I spoke with Dr. Correia following his ER visit. His CT scan was not diagnostic . I have requsted a copy. He feels better and remembers having diarrhea later on that week. The possibilit ies include diverticul itis and ischemic bowel. In view of the recent LLQ abdominal pain, he may need to see Dr. Ratliff in the office, he is presently asymptomat ic. Polyp of colon 79140365 K63.5 K57.30 His last colonoscop y was done 08/24/[address] Ratliff, the recommenda tion was Q 5years. In view of the recent LLQ abdominal pain, he may need to see Dr. Ratliff in the office Active or passive immunization 595873242 Z23 Type 2 ban betes mellitus without complication 474489918 E11.9 Labs were discussed [id number] MD Lenora Bronson (Adult Med) [address] [place] [phone] 12/22/2015 14:54:22 12/22/2015 15:40:34 Polyp of colon 22092566 K63.5 K57.30 His last colonoscop y was done 08/24/[address] Ratliff, the recommenda tion was Q 5 years. He states that the LLQ abdominal pain has resolved, he still needs to see Dr. Ratliff for his colonoscop y Diabetes mellitus 950340 09 E11.9 Stable, diet controlled Screening for malignant neoplasm of prostate 249161807 Z12.5 [id number] MD Lenora Bronson (Adult Med) [address] [place] [address] 97680-755 0 04/05/2016 10:31:28 04/05/2016 17:58:50 Polyp of colon 92429661 K63.5 K57.30 His last colonoscop y was done 08/24/[address] Ratliff, the recommenda tion was Q 5 years. He states that he has not been contacted, the MA will look into this. Essential hypertension 10579862 I10 Stables Impotence of organic origin 850562362 N52.9 N40.1 Cialis 5mg po daily for BPH/ED, was effective, however his insurance company limits him to 4/month. He now states that [facility] last filled the 20mg dose which he has to cut in quarters, he apparently now has to swich to [facility] and he is waiting on a response. Disorder o f lipid metabolism 002526015 E78.9 [id number] MD Lenora Bronson (Adult Med) [address] [place] [address] 32445-887 0 10/04/2016 09:42:53 10/04/2016 10:36:38 Primary erectile dysfunction 218251407 N52.9 Motion sickness 89741665 T75.3XXA Medication monitoring 39 5615008 Z51.81 Type 2 ban betes mellitus without complication 113800784 E11.9 Labs were discussed Diabetes mellitus 387839 09 E11.9 Stable, diet controlled Influenza vaccine needed 6623692355 106 Z23 Recurrent genital herpes simplex 853876234 A60.00 [id number] MD Lenora Bronson (Adult Med) [address] [place] [address] 82200-637 0 04/15/2017 11:11:15 04/15/2017 12:03:38 Left lower quadrant pain 378335774 R10.32 I will treat as diverticul itis, he had an abnormal CT scan in 2014 and a colonoscop y in 2016 Type 2 ban betes mellitus without complication 623393602 E11.9 Labs were discussed, excellent control with just the diabetic diet Diverticulitis 464574592 K57.92 Thrombocyt openic disorder 338657037 D69.6 Primary er ectile dysfunction 960061271 N52.9 Diabetes mellitus 581092 09 E11.9 Stable, diet controlled [id number] MD Lenora Bronson (Adult Med) [address] [place] [address] 42929-006 0 09/30/2017 11:00:09 09/30/2017 11:59:53 Administration of influenza vaccine 11279861 Z23 Type 2 ban betes mellitus without complication 322290674 E11.9 Screening for malignant neoplasm of prostate 953474981 Z12.5 Eruption 692174426 R21 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 He was seen by podiatry, He tried to remove those things and they come right back . HIV screening 295490798 Z11.4 Benign pro static hyperplasia 200415643 N40.1 This was discussed in detail, on Cialis 5mg po daily.I will add Flomax, side effects were discussed [id number] [facility] [address] [place] [address] [phone] 0 02/17/2018 16:33:29 02/17/2018 17:39:58 Obstructive sleep apnea syndrome 77916004 G47.33 Diverticular disease 397 132105 K57.90 He had a flare a few weeks ago Administra tion of pneumococcal vaccine 86339864 Z23 Type 2 ban betes mellitus without complication 346716182 E11.9 Medication monitoring 39 4338823 Z51.81 [id number] MD Lenora Bronson (Adult Med) [address] [place] [address] 26667-042 0 08/18/2018 16:19:25 08/18/2018 17:46:18 Administration of influenza vaccine 87315559 Z23 Diverticulitis 465299092 K57.92 Thrombocyt openic disorder 193854949 D69.6 This may be due to his BB or Aspirin Type 2 ban betes mellitus without complication 304954434 E11.9 Motion sickness 44884011 T75.3XXA [id number] MD Lenora Bronson (Adult Med) [address] [place] [address] 86887-353 0 01/12/2019 09:21:50 01/12/2019 10:26:13 Obstructive sleep apnea syndrome 40453733 G47.33 He is still waiting for his CPAP Thrombocyt openic disorder 924873714 D69.6 This may be due to his BB or Aspirin Type 2 ban betes mellitus without complication 839630432 E11.9 Screening for malignant neoplasm of prostate 265089343 Z12.5 [id number] MD Lenora Bronson (Adult Med) [address] [place] [address] 90913-150 0 03/10/2019 15:12:21 03/10/2019 15:54:48 Thrombocytopenic disorder 080986724 D69.6 This may be due to his BB or Aspirin History of syncope 79598 97090 41533 Z86.79 History of appendectomy 421705976 Z90.49 Abdominal abscess 605906 08 K65.1 Type 2 ban betes mellitus without complication 498684358 E11.9 [id number] MD Lenora Bronson (Adult Med) [address] [place] [address] 02093-037 0 09/01/2019 09:39:12 09/01/2019 11:11:59 Administration of influenza vaccine 22642927 Z23 Adenomatou s polyp of colon 763196240 D12.6 Type 2 ban betes mellitus without complication 371447490 E11.9 Pruritic rash 45211512 L 28.2 [id number] MD Lenora Bronson (Adult Med) [address] [place] [address] 48453-704 0 02/01/2020 09:26:47 02/02/2020 11:36:54 Adenomatous polyp of colon 480270254 D12.6 04/18/2016 Q 3 years Type 2 ban betes mellitus without complication 795552066 E11.9 Long-term drug therapy 231761992 Z79.899 Screening for malignant neoplasm of prostate 968951397 Z12.5 [id number] DERIK Smith [address] [place] [address] 05/18/2020 12:18:53 05/19/2020 08:16:59 Viral screening 634309500 Z11.59 D/w pt the current pandemic of COVID-19 and call for social isolation in order to blunt the curve and minimize risk and spread. Encouraged patient and family to take restrictio ns seriously. They have verbalized understand ing of such. Viral syndrome 258182478 B34.9 Coronavirus infection 18 9671335 B34.2 [id number] MD Lenora Bronson (Adult Med) [address] [place] [address] 17662-464 0 08/15/2020 09:23:14 08/16/2020 08:34:20 Medication monitoring 652648606 Z51.81 Type 2 ban betes mellitus without complication 155413637 E11.9 Intentiona l weight loss 954698085 R63.8 Administra tion of influenza vaccine 58806221 Z23 [id number] MD Lenora Bronson (Adult Med) [address] [place] [address] 77364-601 0 02/13/2021 10:09:21 02/14/2021 07:39:31 Dyspnea on exertion 89825231 R06.09 CC negative CTA Most recent TTE report needed Other possibilit ies include occupation al lung disease. Obtain PFTS Retrolisthesis 646887663 M43.10 Noted on th xray of the cspine Thrombocyt openic disorder 492248320 D69.6 This may be due to his BB or Aspirin Type 2 ban betes mellitus without complication 333569059 E11.9 Benign pro static hyperplasia 761551717 N40.1 This was discussed in detail, on Cialis 5mg po daily.I will add Flomax, side effects were discussed Osteoarthritis 786406240 M19.90 [id number] MD Lenora Bronson (Adult Med) [address] [place] [address] 26495-826 0 03/06/2021 08:59:50 03/07/2021 10:38:17 Primary erectile dysfunction 439206850 N52.9 Stable on current therapy Benign pro static hyperplasia 205417052 N40.1 This was discussed in detail, on Cialis 2.5mg po daily and Flomax. 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.764 [id number] MD Lenora Bronson (Adult Med) [address] [place] [address] 92307-806 0 02/05/2022 09:44:47 02/06/2022 15:46:54 Bleeding from nose 241848941 R04.0 Unclear if this is related to his chronic thrombocyt openia Thrombocyt openic disorder 899519352 D69.6 PLT 108 09/06/2021 This was felt to be due his BB which was discontinu ed by cardiology , although he is still on Aspirin Echocardio gram abnormal 554036293 R93.1 Type 2 ban betes mellitus without complication 963394873 E11.9 Medication monitoring 39 9433344 Z51.81 [id number] MD Lenora Bronson (Adult Med) [address] [place] [address] 13109-229 0 07/31/2022 10:58:46 08/01/2022 11:37:52 Bleeding from nose 426358794 R04.0 S/P cautery by ENT Thrombocyt openic disorder 911707313 D69.6 PLT 108 09/06/2021 This was felt to be due his BB which was discontinu ed by cardiology , he was seen by hematology and his Aspirin was discontinu ed and he was started on iron. Type 2 ban betes mellitus without complication 692491115 E11.9 Administra tion of pneumococcal vaccine 20889115 Z23 Body mass index 30+ - obesity 167520136 Z68.38 Alkaline p hosphatase above reference range 174575444 R74.8 Medication monitoring 39 9873579 Z51.81 Administra tion of influenza vaccine 35777771 Z23 [id number] MD Lenora Bronson (Adult Med) [address] [place] [address] 05135-314 0 02/18/2023 09:09:55 02/19/2023 09:03:04 Alkaline phosphatase above reference range 301073605 R74.8 Type 2 ban betes mellitus without complication 944525773 E11.9 Thrombocyt openic disorder 016915581 D69.6 Seen by the hematologi st, his Thrombocyt openia is now felt to be be possibly due to his fatty liver, prior ETOH and ASA OV 07/31/2023 LT 108 09/06/2021 This was felt to be due his BB which was discontinu ed by cardiology , he was seen by hematology and his Aspirin was discontinu ed and he was started on iron. Screening for malignant neoplasm of prostate 723151299 Z12.5 Medication monitoring 39 1653730 Z51.81 Pain of left hand 243690 1201 73631 M79.642 Tenosynovi tis +/- arthritis [id number] MD Lenora Bronson (Adult Med) [address] [place] [address] 81991-837 0 09/02/2023 09:25:32 09/03/2023 13:00:57 Type 2 diabetes mellitus without complication 007795097 E11.9 HBA1C 5.9% on 02/19/2023 Medication monitoring 39 7621694 Z51.81 Body mass index 30+ - obesity 337925684 Z68.38 Overweight 316545016 E66 .3 Administra tion of influenza vaccine 22627971 Z23 Motion sickness 63908612 T75.3XXA [id number] MD Lenora Bronson (Adult Med) [address] [place] [address] 81792-816 0 03/03/2024 09:02:21 03/03/2024 14:36:46 Type 2 diabetes mellitus without complication 686005954 E11.9 HBA1C 5.9% on 02/19/2023 Screening for malignant neoplasm of prostate 421064995 Z12.5 [id number] MD Lenora Bronson (Adult Med) [address] [place] [address] 09/02/2024 09:48:12 09/04/2024 14:44:50 Obesity 333821849 E66.9 Chronic neck pain 741606 7547 107 M54.2 Cervical d isc disorder 802404072 M50.90 Type 2 ban betes mellitus without complication 501348188 E11.9 HBA1C 5.9% on 03/03/2024S table, diet controlled Health Concerns Section Related Observation LastModified by Organization Detai ls LastModified Time None Recorded Concern Status LastModified by Organization Details LastModified Time None Recorded Advance Directives Directive N: Payers Encounter Date Sequence Insurance Name Policy Number Policy Mehta Covered Member ID Mehta Member ID Guarantor Name 07/31/2022 1 [place] [id number] Isael Gonzalez [id number] 1 Zorolandabel Carlos 02/18/2023 1 [place] [id number] Zogeovanyl Carlos [id number] 1 Zorobabel Carlos 09/02/2023 1 [place] [id number] Zorobabel Carlos [id number] 1 Zorobabel Carlos 03/03/2024 1 [place] [id number] Zorobabel Carlos [id number] 1 Zorobabel Carlos 09/02/2024 1 [employer] (MEDICARE REPLACEMENT PPO) [id number] Isael Gonzalez [id number] Isael Gonzalez Notes Date Note Type Note Provider Name and Address Organization Details Recorded Time 07/31/2022 text/html She cauterized it and I have not had a nosebleed since Mr Gonzalez returns, in the interim, he was seen by ENT (Epistaxis), Hematology for his thrombocytopenia and Cardiology. He is doing well but at times as GI intolerance to the oral iron he was started on by hematology. Margareth Soto MD Attn: Accounting,[address] [place], [address], [facility] 07/31/2022 11:45:32 02/18/2023 text/html Diabetes F/URepo rted bypatient.Labs:last A1C result: 6.2 Context:taking aspirin daily; not missing doses of medications; no side effects from medications Associated Symptoms:no weight loss; no dizziness; no sweats; no headaches; no confusion; no increased thirst; no increased appetite; no increased urination; no blurred vision; no numbness of feet; no calluses on feet;weight gain (7 lbs)Hand/FingersReport ed bypatient.Hand Dominance:right Location:bilateral Quality:aching Severity:mild Duration:months Timing:chronic Context:cannot identify Aggravating Factors:cannot identify Associated Symptoms:no weakness; no numbness; no tingling; no swelling; no redness; no warmth; no ecchymosis; no catching/locking; no popping/clicking; no buckling; no grinding; no instability; no radiation; no drainage; no fever; no chills; no weight loss; no change in bowel/bladder habits Previous Surgery:none Prior Imaging:none Previous Injections:none Previous PT:none Work Related:yes Working:regular duty My regular I think it is arthritis in the hands, in the joints Mr Gonzalez presents with pain in both hands, his symptoms are worse around the left thumb. Margareth Soto MD Attn: Accounting,[address] [place], [address], [facility] 02/18/2023 10:47:21 09/02/2023 text/html Diabetes F/URepo rted bypatient.Labs:last A1C result: 5.9 Context:normal range of home blood sugars (in the low 100s); seeing eye doctor regularly; checking feet regularly Associated Symptoms:no weight gain; no dizziness; no sweats; no headaches; no confusion; no increased thirst; no increased appetite; no increased urination; no blurred vision; no numbness of feet; no calluses on feet;weight loss (2 lbs) My hand again, I have an appointment to go back... I am ready to go on a cruise Mr Gonzalez is doing well, he was seen by the orthopedic surgeon and received an injection in his left hand, his symptoms returned shortly after that. He has scheduled a follow up appointment. He is scheduled for an extended cruise in January of next year. Margareth Soto MD Attn: Accounting,[address], [place], [address], [facility] 09/02/2023 11:14:30 03/03/2024 text/html Diabetes F/URepo rted bypatient.Context:norm al range of home blood sugars (in the low 100s); seeing eye doctor regularly; checking feet regularly Associated Symptoms:no weight gain; no weight loss; no dizziness; no sweats; no headaches; no confusion; no increased thirst; no increased appetite; no increased urination; no blurred vision; no numbness of feet; no calluses on feet A regular check up Margareth Soto MD Attn: Accounting, [address], [place], [address], [facility] 03/03/2024 10:50:00 09/02/2024 text/html Medicare Annual Wellness VisitReported bypatient.Diet and Nutrition:healthy diet; discussed vitamin and supplement use Fracture Risk:no history of fractures; no recent explained fracture; no sudden unexplained fractures; no previous musculoskeletal injuries Physical Activity:exercises on a regular basis; recent increase in physical activity; good physical condition Depression Risk:never feels sad, empty, or tearful; no loss of interest in activities; no significant changes in weight; no sleep disturbances or insomnia; no agitation; no loss of energy; no feelings of worthlessness or guilt; no thoughts of suicide; no history of depression; no history of mood disorders Orientation:no disorientation to time; no disorientation to date; no disorientation to place Concentration and Memory:no decreased concentrating ability; no memory lapses or loss; does not forget words Speech/Motor difficulties:no speech difficulties; no difficulty expressing formulated concepts; no difficulty with fine manipulative tasks; no difficulty writing/copying; no slowed reaction time; does not knock things over when trying to pick them up Hearing:no loss of hearing Vision:worse both distance and near Activities of Daily Living:able to bathe with limited or no assistance; able to contol urination and bowels; able to dress with limited or no assistance; able to feed self with limited or no assistance; able to get out of chair or bed with limited or no assistance; able to groom with limited or no assistance; able to toilet with limited or no assistance Instrumental Activities of Daily Living:able to do house work with limited or no assistance; able to grocery shop with limited or no assistance; able to manage medications with limited or no assistance; able to manage money with limited or no assistance; able to prepare meals with limited or no assistance; able to use the phone with limited or no assistance Falls Risk Assessment:no frequent falls while walking; no fall in the past year; no fall since last visit; no dizziness/vertigo Home Safety:no unsafe marilyn hazzards; no unsafe stairs; no unsafe gas appliances; working smoke/CO detectors; wears protective head gear for biking/high velocity; use of seatbelts; no vision or hearing loss while driving; has hand bars in the bathroom/shower; good lighting in the home When I turn it, there is a pain on the left side Mr Gonzalez returns, he has been having pain on the posterior and left side of his neck for years. He had an xray of the cervical spine on 02/10/2021 which confirmed, retrolisthesis, disc space narrowing and moderate osteoarthritis. At that time a MRI was recommended. Margareth Soto MD Attn: Accounting,[address] [place], [address], [place] [facility] 09/02/2024 10:50:02
--- OUTSIDE RECORDS SUMMARY | 2024-12-02 16:26 | XMS_ITS | Clinical Summary ---
Author Organization [facility] [employer] Address [address] [place] [address] Care Team Providers Care Printing Manager Name Role Phone Margareth Walker MD Primary Care Provider Source Comments [facility] [employer],non-owned Affiliates and Associated Physician Practices is amultiple site organization consisting of ambulatory clinics and hospital sitesin [place], [place] and [place]. This disclosure is being madepursuant to the Care Everywhere program and may not contain all information available regarding this patient. Last updated 18.[facility] [employer] Allergies No known active allergies Medications * Be aware that medications may not be up to date on this document. Alwaysverify current medications with the patient. Medication Sig Dispensed Refills Start Date End Date Status tamsulosin (FLOMAX) 0.4 MG capsule Take 1 capsule by mouth once daily Active atorvastatin (LIPITOR) 40 MG tablet Take 1 tablet by mouth once daily 01/16/2022 Active lisinopril (PRINIVIL;ZESTRIL) 5 MG tablet Take 1 tablet by mouth once daily Active tadalafil (CIALIS) 5 MG tablet Take 1 tablet by mouth once daily Active ASPIRIN 81 PO Take 1 capsule by mouth once daily Active Active Problems No known active problems Immunizations Name Administration Dates Next Due FLU VACCINE TRI IIV3 SPLIT I M (FLUVIRIN) 08/24/2015 INFLUENZA VACCINE, QUADR. (A FLURIA, FLUZONE QUADRIVALENT; 6MO+) (IIV4) 09/04/2021,08/15/2020,09/01/2019,2016,10/04/2016 INFLUENZA VACCINE, QUADR. (F LUZONE; FLULAVAL; FLUARIX; AFLURIA QUADRIVALENT; 6MO+), 0.5 ML (IIV4) 08/19/2018 PNEUMOCOCCAL PPV VACCINE 02/17/2018 TDAP, HISTORIC VACCINE 04/13/2014 Social History Tobacco Use Types Packs/Day Years Used Date Smoking Tobacco: Never Smokeless Tobacco: Never Alcohol Use Standard Drinks/Week Comments Never 0 (1 standard drink = 0.6 oz pur e alcohol) Sex and Gender Information Value Date Recorded Sex Assigned at Not on file Gender Identity Not on file Sexual Orientation Not on file Last Filed Vital Signs Vital Sign Reading Time Taken Comments Blood Pressure 116/79 03/19/2022 8:52 AM CDT Pulse 63 03/19/2022 8:52 AM CDT Temperature - - Respiratory Rate 16 03/19/2022 8:52 AM CDT Oxygen Saturation - - Inhaled Oxygen Concentration - - Weight 115.2 kg (254 lb) 03/19/2022 8:52 AM CDT Height 175.3 cm (5' 9 ) 03/19/2022 8:52 AM CDT Body Mass Index 37.51 03/19/2022 8:52 AM CDT Plan of Treatment Health Maintenance Due Date Last Done Comments COLOGUARD (AGES 45-75) - COLON CA SCREENING 1957 COLON MONITORING 1957 COLONOSCOPY - COLON CA SCREENING 1957 CT COLONOGRAPHY - COLON CA SCREENING 1957 Colorectal Cancer Screening 1957 FIT - COLON CA SCREENING 1957 FLEX SIG - COLON CA SCREENING 1957 HEPATITIS C SCREENING 05/13/1975 ZOSTER VACCINE (1 of 2) 2007 PNEUMOCOCCAL VACCINE 50+ (2 of 2 - PCV) 02/17/2019 02/17/2018 SCREENING FOR DIABETES 03/19/2022 DTAP/TDAP/TD VACCINES (2 - Td or Tdap) 04/13/2024 04/13/2014 COVID-19 VACCINE ( season) 2024 03/06/2022, 08/31/2021, 01/07/2021, Additional history exists INFLUENZA VACCINE (#1) 2024 1, 08/15/2020, 09/01/2019, Additional history exists DEPRESSION SCREENING 11/04/2024 Respiratory Syncytial Virus (RSV) Vaccine Pt: or over 60 yrs (1 - 1-dose 75+ series) 2032 HEPATITIS B VACCINE Aged Out No longe r eligible based on patient's age to complete this topic HIB VACCINE Aged Out No longer eligi ble based on patient's age to complete this topic HPV VACCINE Aged Out No longer eligi ble based on patient's age to complete this topic MENINGOCOCCAL (Group B) VACCINE Aged Out No longer eligible based on patient's age to complete this topic MENINGOCOCCAL VACCINE Aged Out No edgard ori eligible based on patient's age to complete this topic Care Teams Printing Manager Relationship Specialty Start Date End Date Margareth Walker MD [address] [place], [place] [id number] PCP - General 03/14/22
--- OUTSIDE RECORDS SUMMARY | 2024-12-02 16:26 | XMS_ITS | CONTINUITY OF CARE DOCUMENT ---
Author Name koby whalen Address Unknown Organization [facility] Address [address] [place] [address] Phone [phone] Care Team Providers Care Rigging Man Name Role Phone Dario RAHMAN, Dariusz Unavailable CHARLES RAHMAN, TONY Unavailable [phone] TONY SOTO MD Unavailable [phone] PROBLEMS Condition Status Date Provider Notes Fatigue active Dariusz Bishop MD Shortness of breath active Dariusz Bishop MD ATRIAL FIBRILLATION PAROXYSMAL active John a Stahlschmidt Cough active Dariusz Bishop MD MOMO--on cpap active Dariusz Bishop MD Thrombocytopenia active Dariusz Bishop MD Anemia active Dariusz Bishop MD Shortness of breath - nml ca th 01/2021 active Smith Rea COVID-19 vaccination completed - Dariusz Bishop MD Sinus bradycardia active Smith Rea Pre-diabetes active Dariusz Bishop MD Obstructive sleep apnea on cpap active Yony Bishop MD Abnormal electrocardiogram active Dariusz quijano MD Hyperlipidemia active Smith Rea DIABETES MELLITUS completed - Dariusz Bishop MD HTN--echo ef 55%, mild LVH, hypokinesis in the apex, 01/2022 active Dariusz Bishop MD Left arm numbness active Smith Rea HYPERCHOLESTEROLEMIA-LABS PE R DR. YOON completed - Dariusz Bishop MD ENCOUNTERS Date Type Provider Location Encounter Diag nosis - In-person encounter Office Visit Dariusz Bishop MD [facility] - In-person encounter Office Visit Dariusz Bishop MD [facility] COVID-19 vaccinationThrombocytopenia MOMO--on cpapCough - In-person encounter Office Visit Dariusz Bishop MD [facility] - In-person encounter Office Visit Dariusz Bishop MD [facility] - In-person encounter Office Visit Dariusz Bishop MD [facility] Anemia - In-person encounter Office Visit aDriusz Bishop MD [facility] HTN--echo ef 55%, mild LVH, hypokinesis in the apex, 01/2022 - In-person encounter Office Visit Dariusz Bishop MD [facility] - In-person encounter Office Visit Dariusz Bishop MD [facility] Left arm numbnessHTN--echo ef 55%, mild LVH, hypokinesis in the apex, 01/2022HyperlipidemiaSinus bradycardiaShortness of breath - nml cath 01/2021 - In-person encounter Office Visit Dariusz Bishop MD [facility] - In-person encounter Office Visit Dariusz Bishop MD [facility] - In-person encounter Office Visit Dariusz Bishop MD [facility] - In-person encounter Office Visit Dariusz Bishop MD [facility] Sinus bradycardia - In-person encounter Office Visit Dariusz Bishop MD [facility] - In-person encounter Office Visit Dariusz Bishop MD [facility] - In-person encounter Office Visit Dariusz Bishop MD [facility] DIABETES MELLITUSPre-diabetes - In-person encounter Office Visit Dariusz Bishop MD [facility] HTN--echo ef 55%, mild LVH, hypokinesis in the apex, 01/2022 - In-person encounter Office Visit Dariusz Bishop MD [facility] Obstructive sleep apnea on cpap - In-person encounter Office Visit Dariusz Bishop MD [facility] - In-person encounter Office Visit Dariusz Bishop MD [facility] - In-person encounter Office Visit Dariusz Bishop MD [facility] - In-person encounter Office Visit Dariusz Bishop MD [facility] Left arm numbnessHTN--echo ef 55%, mild LVH, hypokinesis in the apex, 01/2022 - In-person encounter Office Visit Dariusz Bishop MD [facility] HYPERCHOLESTEROLEMIA-LABS PER DR. Manley electrocardiogram - In-person encounter Office Visit Dariusz Bishop MD [facility] - In-person encounter Office Visit Dariusz Bishop MD [facility] - In-person encounter Office Visit Karo Wetzel MD [facility] Hyperlipidemia - In-person encounter Office Visit Karo Wetzel MD [facility] - In-person encounter Office Visit Dariusz Bishop MD [facility] - In-person encounter Office Visit Dariusz Bishop MD [facility] - In-person encounter Office Visit Dariusz Bishop MD [facility] - In-person encounter Office Visit Dariusz Bishop MD [facility] - In-person encounter Office Visit Dariusz Bishop MD [facility] Left arm numbnessHTN--echo ef 55%, mild LVH, hypokinesis in the apex, 01/2022 VITAL SIGNS Date Observation Value Provider Body Mass Index (Ratio) 36.32 kg/m2 Bessie Yoo blood pressure, diastolic 70 mm[Hg] Ja rret blood pressure, systolic 122 mm[Hg] Jar ret pulse rate 76 /min Isaac blood pressure, cuff size regular Ja rret respiratory rate E&M 16 /min Isaac oxygen saturation, oximetry 96 % weight E&M 246 [lb_av] Isaac height E&M 69 [in_i] Isaac y Body Mass Index (Ratio) 36.18 kg/m2 Yony Bishop MD blood pressure, cuff size regular Ja rret blood pressure, diastolic 84 mm[Hg] Ja rret blood pressure, systolic 142 mm[Hg] Jar ret pulse rate 68 /min Isaac oxygen saturation, oximetry 98 % respiratory rate E&M 14 /min Isaac weight E&M 245 [lb_av] Isaac y height E&M 69 [in_i] Isaac y Body Mass Index (Ratio) 37.65 kg/m2 Yony Bishop MD blood pressure, diastolic 71 mm[Hg] Fallon [facility]kLogic blood pressure, systolic 130 mm[Hg] Whit kLogic blood pressure, cuff size regular Ja rret blood pressure, diastolic 71 mm[Hg] Elias smithet blood pressure, systolic 130 mm[Hg] Aaliyah bishop pulse rate 68 /min Isaac weight E&M 255 [lb_av] Isaac respiratory rate E&M 12 /min Isaac oxygen saturation, oximetry 98 % Isaac height E&M 69 [in_i] Isaac Body Mass Index (Ratio) 36.62 kg/m2 Yony Bishop MD blood pressure, cuff size regular Ke rri Jimuene blood pressure, diastolic 80 mm[Hg] Ke rri Jimuenenfeld blood pressure, systolic 122 mm[Hg] Dioni ri Francistexas [facility] oxygen saturation, oximetry 98 % Jayne Mimier respiratory rate E&M 12 /min Jayne G christophenenfelder pulse rate 65 /min Jayne Liliana [facility] weight E&M 248 [lb_av] Jayne Thunenfe er height E&M 69 [in_i] Jayne Thunenfe er Body Mass Index (Ratio) 37.06 kg/m2 Yony Bishop MD blood pressure, diastolic 70 mm[Hg] [facility] Lares blood pressure, systolic 123 mm[Hg] Jerrell Lares oxygen saturation, oximetry 98 % Ayanaama Lares respiratory rate E&M 18 /min Ayana D sumeet pulse rate 63 /min Ayana Arnaud weight E&M 251 [lb_av] Ayana Arnaud height E&M 69 [in_i] Ayana Arnaud Body Mass Index (Ratio) 38.10 kg/m2 Yony Bishop MD blood pressure, diastolic 66 mm[Hg] Deborah Ivan blood pressure, systolic 114 mm[Hg] Abrahan Ivan respiratory rate E&M 18 /min Lavonne Ivan pulse rate 71 /min Alexx del rosario oxygen saturation, oximetry 98 % Alexx Ivan weight E&M 258 [lb_av] Alexx del rosario blood pressure, cuff size regular Deborah Iavn height E&M 69 [in_i] Alexx del rosario Body Mass Index (Ratio) 38.54 kg/m2 Yony Bishop MD blood pressure, diastolic 80 mm[Hg] Fallon nkLogic blood pressure, systolic 122 mm[Hg] Whit kLogic blood pressure, cuff size regular Cy joe Oreilly blood pressure, diastolic 80 mm[Hg] Cy ntvahid Oreilly blood pressure, systolic 122 mm[Hg] Sarina Oreilly pulse rate 68 /min Terese Nilda l oxygen saturation, oximetry 97 % Terese Oreilly respiratory rate E&M 16 /min Terese Oreilly weight E&M 261 [lb_av] Terese Campbel l height E&M 69 [in_i] Terese Campbel l Body Mass Index (Ratio) 38.83 kg/m2 Yony Bishop MD blood pressure, cuff size large Ke rri Jan blood pressure, diastolic 70 mm[Hg] Ke rri Jan blood pressure, systolic 120 mm[Hg] Dioni Montoya oxygen saturation, oximetry 98 % Jayne Montoya respiratory rate E&M 16 /min Jayne brodyer pulse rate 71 /min Jayne Francise er weight E&M 263 [lb_av] Jayne Francise er height E&M 69 [in_i] Jayne Navanfe [facility] Body Mass Index (Ratio) 38.24 kg/m2 Yony Bishop MD blood pressure, cuff size large Ke rri Gru[facility]gr[facility] cottage hospital[facility] blood pressure, diastolic 70 mm[Hg] Ke rri Jimuenenfelder blood pressure, systolic 122 mm[Hg] Dioni ri Francisgrace cottage hospitaler oxygen saturation, oximetry 98 % Jayne Vicknfgrace cottage hospitaler respiratory rate E&M 16 /min Jayne nealnfelder pulse rate 68 /min Jayne Ford [facility] weight E&M 259 [lb_av] Jayne Blancoe [facility] height E&M 69 [in_i] Jayne Blancoe [facility] Body Mass Index (Ratio) 37.65 kg/m2 Yony Bishop MD blood pressure, diastolic 81 mm[Hg] To nsha Mohan blood pressure, systolic 122 mm[Hg] Ton sha Mohan oxygen saturation, oximetry 97 % Tonsha Mohan respiratory rate E&M 16 /min Tonsha Mohan pulse rate 63 /min Tonsha Mohan weight E&M 255 [lb_av] Tonsha Mohan height E&M 69 [in_i] Tonsha Mohan temperature site temporal Regine Tank sley temperature E&M 96.0 [degF] Regine Tanks amanda Body Mass Index (Ratio) 37.98 kg/m2 Yony Bishop MD blood pressure, diastolic 75 mm[Hg] Ivonne Banks blood pressure, systolic 117 mm[Hg] Yaquelin Banks oxygen saturation, oximetry 98 % Toro Banks respiratory rate E&M 18 /min Tatyana Banks pulse rate 63 /min Toro meyer weight E&M 257.2 [lb_av] Toro phamon height E&M 69 [in_i] Toro Andrew nsbertram Body Mass Index (Ratio) 35.59 kg/m2 Yony Bishop MD blood pressure, diastolic 76 mm[Hg] [facility], systolic 124 mm[Hg] Javed mathew [place] oxygen saturation, oximetry 98 % [facility] respiratory rate E&M 16 /min [facility] pulse rate 50 /min [facility] weight E&M 241 [lb_av] [facility] height E&M 69 [in_i] [facility] Body Mass Index (Ratio) 37.51 kg/m2 Yony Bishop MD blood pressure, cuff size large Ke rri [facility]istex[facility] blood pressure, diastolic 80 mm[Hg] Ke rri Jan blood pressure, systolic 120 mm[Hg] Dioni Montoya oxygen saturation, oximetry 99 % Jayne Montoya respiratory rate E&M 18 /min Jayne arrington pulse rate 62 /min Jayne Ford er weight E&M 254 [lb_av] Jayne Ford lder height E&M 69 [in_i] Jayne Andinonevickye er Body Mass Index (Ratio) 36.47 kg/m2 Yony Bishop MD blood pressure, diastolic 70 mm[Hg] Da emilia Elidia blood pressure, systolic 112 mm[Hg] Dac ia Elidia oxygen saturation, oximetry 97 % Lisa Elidia respiratory rate E&M 16 /min Lisa V oss pulse rate 77 /min Lisa Elidia weight E&M 247 [lb_av] Lisa Elidia height E&M 69 [in_i] Lisa Elidia Body Mass Index (Ratio) 36.44 kg/m2 Yony Bishop MD blood pressure, diastolic 74 mm[Hg] Ivonne Banks blood pressure, systolic 123 mm[Hg] Yaquelin Banks oxygen saturation, oximetry 98 % Toro Banks respiratory rate E&M 18 /min Tatyana Banks pulse rate 61 /min Toro Andrew nson weight E&M 246.8 [lb_av] Toro Montano enson height E&M 69 [in_i] Toro Andrew nsbertram Body Mass Index (Ratio) 36.74 kg/m2 Yony Bishop MD blood pressure, diastolic 79 mm[Hg] Ivonne Banks blood pressure, systolic 126 mm[Hg] Yaquelin Montanoenson oxygen saturation, oximetry 97 % Toro Banks respiratory rate E&M 18 /min Tatyana lanre Banks pulse rate 68 /min Toro meyer weight E&M 248.8 [lb_av] Toro Montano enson height E&M 69 [in_i] Toro Andrew mitch Body Mass Index (Ratio) 37.65 kg/m2 Yony Bishop MD blood pressure, resting Yes Tran Banks blood pressure, diastolic 74 mm[Hg] Ivonne Banks blood pressure, systolic 116 mm[Hg] Yaquelin Banks oxygen saturation, oximetry 97 % Toro Banks respiratory rate E&M 16 /min Tatyana Banks pulse rate 68 /min Toro meyer weight E&M 255 [lb_av] Toro meyer height E&M 69 [in_i] Toro meyer blood pressure, diastolic 79 mm[Hg] Me cornell Cormier blood pressure, systolic 118 mm[Hg] Fariba carpenter Cormier pulse rate 58 /min Jessika Cormier oxygen saturation, oximetry 96 % Jessika Cormier respiratory rate E&M 15 /min Jessika Cormier Body Mass Index (Ratio) 37.95 kg/m2 Bessie andrew Cormier weight E&M 257 [lb_av] Jessika Cormier blood pressure, diastolic 81 mm[Hg] Ivonne Banks blood pressure, systolic 129 mm[Hg] Yaquelin Banks pulse rate 63 /min Toro meyer oxygen saturation, oximetry 97 % Toro Banks respiratory rate E&M 18 /min Tatyana Banks Body Mass Index (Ratio) 38.27 kg/m2 Tran Banks weight E&M 259.2 [lb_av] Toro bryson Body Mass Index (Ratio) 38.39 kg/m2 Anea jono Farhat blood pressure, diastolic 88 mm[Hg] An eatris Farhat blood pressure, systolic 147 mm[Hg] Ane atris Brown pulse rate 91 /min Aneatris Brown oxygen saturation, oximetry 99 % Aneatris Brown respiratory rate E&M 17 /min Aneatri s Farhat weight E&M 260 [lb_av] Aneatris Brown Body Mass Index (Ratio) 38.10 kg/m2 Anea jono Farhat blood pressure, diastolic 87 mm[Hg] An eatris Brown blood pressure, systolic 137 mm[Hg] Ane atris [facility] pulse rate 80 /min Aneatris [facility] oxygen saturation, oximetry 98 % Aneatris [facility] respiratory rate E&M 17 /min Aneatri s [facility] weight E&M 258 [lb_av] Aneatris Farhat Body Mass Index (Ratio) 38.10 kg/m2 Aleida tomlin Kern blood pressure, diastolic 82 mm[Hg] Abhishek Kern blood pressure, systolic 131 mm[Hg] Francois anders [place]ern pulse rate 57 /min Nevin Kern oxygen saturation, oximetry 98 % Nevin Kern respiratory rate E&M 17 /min Nevin [place] weight E&M 258 [lb_av] Nevin Paradise Body Mass Index (Ratio) 38.09 kg/m2 Patrick i Jan blood pressure, diastolic 78 mm[Hg] Ke rri Jan blood pressure, systolic 130 mm[Hg] Dioni Montoya pulse rate 60 /min Jayne mitchell oxygen saturation, oximetry 98 % Jayne Montoya respiratory rate E&M 17 /min Jayne arrington weight E&M 257 [lb_av] Jayne mitchell Body Mass Index (Ratio) 38.45 kg/m2 Dave Robb blood pressure, diastolic, left arm 77 mm [Hg] Jhonatan Robb blood pressure, systolic, left arm 123 mm [Hg] Jhonatan Robb blood pressure, diastolic, right arm 90 m m[Hg] Jhonatan Robb blood pressure, systolic, right arm 140 m m[Hg] Jhonatan Robb blood pressure, diastolic 77 mm[Hg] Hoover blood pressure, systolic 123 mm[Hg] Tommie Robb pulse rate 62 /min Maritzastaci Robb oxygen saturation, oximetry 98 % Jhonatan Robb respiratory rate E&M 16 /min Jhonatan Robb weight E&M 259.4 [lb_av] Jhonatan Robles n blood pressure, diastolic, left arm 85 mm [Hg] Jhonatan Robb blood pressure, systolic, left arm 126 mm [Hg] Jhonatan Robb blood pressure, diastolic, right arm 78 m m[Hg] Jhonatan Robb blood pressure, systolic, right arm 135 m m[Hg] Jhonatan Robb blood pressure, diastolic 85 mm[Hg] Hoover blood pressure, systolic 126 mm[Hg] Tommie Robb pulse rate 70 /min Jhonatan Robb oxygen saturation, oximetry 97 % Jhonatan Robb respiratory rate E&M 18 /min Jhonatan Robb weight E&M 260 [lb_av] Jhonatan Robb blood pressure, diastolic 78 mm[Hg] Elias Gaines RN blood pressure, systolic 137 mm[Hg] Genaro Gaines RN pulse rate 70 /min Genaro Gaines RN oxygen saturation, oximetry 99 % Genaro Gaines RN respiratory rate E&M 16 /min Genaro mcfarland RN weight E&M 246 [lb_av] Genaro Gaines RN Body Mass Index (Ratio) 36.16 kg/m2 María Craven 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 weight E&M 244 [lb_av] Mitesh workman 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 height E&M 69 [in_i] Mitesh workman 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 blood pressure, diastolic 64 mm[Hg] Hoover blood pressure, systolic 100 mm[Hg] Tommie Robb pulse rate 71 /min [facility] oxygen saturation, oximetry 97 % [facility] respiratory rate E&M 16 /min [facility] weight E&M 245 [lb_av] [facility] blood pressure, diastolic, left arm 80 mm [Hg] [facility] blood pressure, systolic, left arm 130 mm [Hg] [facility] blood pressure, diastolic, right arm 83 m m[Hg] [facility] blood pressure, systolic, right arm 129 m m[Hg] [facility] blood pressure, diastolic 83 mm[Hg] Reed [place]ora blood pressure, systolic 129 mm[Hg] [facility] pulse rate 65 /min [facility] oxygen saturation, oximetry 95 % [facility] respiratory rate E&M 18 /min [facility] weight E&M 252 [lb_av] [facility], [facility], left arm 83 mm [Hg] Genaro Gaines RN blood pressure, systolic, left arm 125 mm [Hg] Genaro Gaines RN blood pressure, diastolic, right arm 78 m m[Hg] Genaro Gaines RN blood pressure, systolic, right arm 119 m m[Hg] Genaro Gaines RN blood pressure, diastolic 78 mm[Hg] Elias Gaines RN blood pressure, systolic 119 mm[Hg] Genaro Gaines RN pulse rate 54 /min Genaro Gaines RN oxygen saturation, oximetry 99 % Genaro Gaines RN respiratory rate E&M 16 /min Genaro mcfarland RN weight E&M 255 [lb_av] Genaro Gaines RN blood pressure, diastolic 80 mm[Hg] Elias Gaines RN blood pressure, systolic 128 mm[Hg] Genaro Gaines RN pulse rate 73 /min Genaro Gaines RN oxygen saturation, oximetry 97 % Genaro Germans RN respiratory rate E&M 18 /min Genaro ballji [place] weight E&M 246 [lb_av] Genaro Gaines RN ALLERGIES Allergy Name Onset Date Reaction Criticality Status LISINOPRIL High Criticality aborted RESULTS Date Observation Value Provider Reference Range Interpretation Location thyroid stimulating hormone, serum 0.480 u[IU]/mL [facility] 0.450-4.500 lipoprotein, beta, serum, point, quantitative, calculated 68 mg/dL [facility] 0-99 very low density lipoproteins 16 mg/dL [facility] 5-40 HDL cholesterol, serum 45 mg/dL [facility] >39 triglyceride, serum, random 78 mg/dL [facility] 0-149 cholesterol, serum 129 mg/dL [facility] [phone]/06 /12 hemoglobin A1C, blood, as % of total hemoglobin 5.8 % [facility] 4.8-5.6 High basophil count, absolute 0.0 x10E3/uL [facility] 0.0-0.2 Eosinophil Absolute Count 0.2 X10E3/UL [facility] 0.0-0.4 monocyte count, blood, automated 0.4 X10E3/UL [facility] 0.1-0.9 lymphocyte count, blood, automated 1.5 X10E3/UL [facility] 0.7-3.1 Absolute Neutrophils 2.8 X10E3/UL [facility] 1.4-7.0 basophils as percent of blood leukocytes 1 % [facility] Not Estab. eosinophils as percent of blood leukocytes 4 % [facility] Not Estab. monocytes as percent of blood leukocytes 7 % [facility] Not Estab. lymphocytes as percent of blood leukocytes 30 % [facility] Not Estab. neutrophils as percent of blood leukocytes 58 % [facility] Not Estab. platelet count 138 X10E3/UL [facility] 150-450 Low red blood cell distribution width 13.5 % [facility] 12.3-15.4 mean corpuscular hemoglobin concentration, RBC 34.0 G/DL [facility] 31.5-35.7 mean corpuscular hemoglobin, RBC 28.2 pg [facility] 26.6-33.0 mean corpuscular volume, RBC 83 fL [facility] 79-97 hematocrit, blood 40.3 % [facility] 37.5-51.0 hemoglobin, blood 13.7 g/dL [facility] 13.0-17.7 erythrocyte (RBC) count 4.86 X10E6/UL [facility] 4.14-5.80 leukocyte count, blood 4.9 X10E3/UL [facility] 3.4-10.8 alanine aminotransferase (SGPT), serum 17 1/L [facility] 0-44 aspartate aminotransferase (SGOT), serum 17 1/L [facility] 0-40 alkaline phosphatase, serum 120 1/L [facility] 39-117 High bilirubin, serum, total 0.7 mg/dL [facility] 0.0-1.2 albumin/globulin ratio, serum 1.4 [facility] 1.2-2.2 globulin, serum 3.1 [facility] 1.5-4.5 albumin, serum 4.2 g/dL [facility] 3.6-4.8 protein, total, serum 7.3 g/dL [facility] 6.0-8.5 calcium, serum 9.6 mg/dL [facility] 8.6-10.2 carbon dioxide, venous blood 24 mmol/L [facility] 20-29 chloride, serum 103 mmol/L [facility] 96-106 potassium, serum 4.3 mmol/L [facility] 3.5-5.2 sodium, serum 142 mmol/L [facility] [phone]/06 /12 urea nitrogen/creatinine ratio, serum 11 [facility] e[facility] if 85 mL/min/{1.73_ m2} [facility]59 eGFR if not 74 mL/min/{1.73_ m2} [facility] >59 creatinine, serum 1.08 mg/dL [facility] 0.76-1.27 urea nitrogen, blood 12 mg/dL [facility] 8-27 blood glucose, random 101 mg/dL [facility] 65-99 High LDL cholesterol, serum 103 mg/dL [facility] cholesterol, serum 177 mg/dL [facility] alanine aminotransferase (SGPT), serum 28 1/L [facility] aspartate aminotransferase (SGOT), serum 23 1/L [facility] creatinine, serum 1.11 mg/dL [facility] potassium, serum 4.4 mmol/L [facility] sodium, serum 141 mmol/L [facility] platelet count 113 10*3/uL [facility] hematocrit, blood 46.1 % [facility] triglyceride, serum, fasting 107 mg/dL [facility] HDL cholesterol, serum 56 mg/dL [facility] lipoprotein, beta, serum, point, quantitative, calculated 107 mg/dL [facility] cholesterol, serum 184 mg/dL [facility] alanine aminotransferase (SGPT), serum 30 1/L [facility] aspartate aminotransferase (SGOT), serum 49 1/L [facility] creatinine, serum 1.09 mg/dL [facility] potassium, serum 4.4 mmol/L [facility] sodium, serum 143 mmol/L [facility] magnesium, serum 2.1 mg/dL [facility] triiodothyronine (T3), serum 139 ng/dL [facility] thyroxine, serum, total 8.5 ug/dL [facility] thyroid stimulating hormone, serum 2.07 u[IU]/mL [facility] estimated glomerular filtration rate >60 [facility] calcium, serum 9.3 mg/dL [facility] blood glucose, fasting 91 mg/dL [facility] creatinine, serum 1.50 mg/dL [facility] urea nitrogen, blood 20.4 mg/dL [facility] carbon dioxide, serum, total 30 mmol/L [facility] chloride, serum 104 mmol/L [facility] potassium, serum 4.3 mmol/L [facility] sodium, serum 141 mmol/L [facility] TOTAL NON-HDL-C (LDL VLDL) [facility] ([facility]), serum 34 1/[facility] aspartate aminotransferase (SGOT), serum 29 1/L [facility] cholesterol/HDL ratio, serum 3.7 [facility] triglyceride, serum, fasting 115 mg/dL [facility] HDL cholesterol, serum 46 mg/dL [facility] LDL cholesterol, serum 100 mg/dL [facility] cholesterol, serum 169 mg/dL [facility] triglyceride, target level 150 mg/dL [facility] HDL cholesterol, serum, target level 40 mg/dL [facility] LDL target level 100 mg/dL [facility] cholesterol, target level 200 mg/dL [facility] very low density lipoproteins 23 mg/dL [facility] LDL/HDL ratio, serum 2.8 [facility] triglyceride, serum, fasting 113 mg/dL [facility] HDL cholesterol, serum 53 mg/dL [facility] LDL cholesterol, serum 150 mg/dL [facility] cholesterol, serum 226 mg/dL [facility] globulins, serum, total 2.9 g/dL [facility] Estimated Glomerular Filtration Rate (calc) >59 albumin/globulin ratio, serum 1.6 [facility] protein, total, serum 7.4 g/dL albumin, serum 4.5 g/dL [facility] bilirubin, serum, total 0.5 mg/dL [facility] alkaline phosphatase, serum 120 1/L [facility] alanine aminotransferase (SGPT), serum 35 1/L [facility] aspartate aminotransferase (SGOT), serum 26 1/L [facility] calcium, serum 9.8 mg/dL [facility] blood glucose, fasting 88 mg/dL [facility] creatinine, serum 1.24 mg/dL [facility] urea nitrogen, blood 16 mg/dL [facility] carbon dioxide, serum, total 24 mmol/L [facility] chloride, serum 102 mmol/L [facility] potassium, serum 4.3 mmol/L [facility] sodium, serum 141 mmol/L [facility] platelet count 110 10*3/uL [facility] red blood cell distribution width 13.6 % [facility] mean corpuscular hemoglobin concentration, RBC 33.9 g/dL [facility] mean corpuscular hemoglobin, RBC 30.1 pg [facility] mean corpuscular volume, RBC 89 fL [facility] hematocrit, blood 46.1 % [facility] hemoglobin, blood 15.6 g/dL [facility] Rashid 2009/12 /03 erythrocyte (RBC) count 5.19 10*6/mm3 [facility] monocyte count, blood 0.2 10*3/mm3 [facility] lymphocyte count, blood 1.5 10*3/mm3 [facility] monocytes as percent of blood leukocytes 5 % [facility] [facility] as percent of blood leukocytes 33 % [facility] leukocyte count, blood 4.5 10*3/mm3 [facility] platelet count 109 THOUSAND/UL [employer] 140-400 Low red blood cell distribution width 13.8 % [facility] 11.0-15.0 Normal mean corpuscular hemoglobin concentration, RBC 34.2 G/DL [facility] 32.0-36.0 Normal mean corpuscular hemoglobin, RBC 30.4 pg [facility] 27.0-33.0 Normal mean corpuscular volume, RBC 89.1 fL [facility] 80.0-100.0 Normal hematocrit, blood 45.1 % [facility] 38.5-50.0 Normal hemoglobin electrophoresis, blood 15.4 [facility] 13.2-17.1 Normal erythrocyte (RBC) count 5.07 MILLION/UL [facility] 4.20-5.80 Normal leukocyte (white blood cells) count, blood 4.7 THOUSAND/UL [facility] 3.8-10.8 Normal alanine aminotransferase (SGPT), serum 32 1/L [facility] 9-60 Normal aspartate aminotransferase (SGOT), serum 23 1/L [facility] 10-35 Normal alkaline phosphatase, serum 120 1/L [facility] 40-115 High bilirubin, serum, total 0.6 mg/dL [facility] 0.2-1.2 Normal albumin/globulin ratio, serum 1.5 (calc) [facility] 1.0-2.1 Normal globulins, serum, total 2.9 G/DL (CALC) [facility] 2.1-3.7 Normal albumin, serum 4.3 g/dL [facility] 3.6-5.1 Normal protein, total, serum 7.2 g/dL [facility] 6.2-8.3 Normal calcium, serum 9.3 mg/dL [facility] 8.6-10.2 Normal carbon dioxide, venous blood 25 mmol/L [facility] 21-33 Normal chloride, serum 105 mmol/L [facility] 98-110 Normal potassium, serum 4.1 mmol/L [facility] 3.5-5.3 Normal sodium, serum 141 mmol/L [facility] 135-146 Normal urea nitrogen/creatinine ratio, serum NOT APPLICABLE (calc) [facility] 6-22 Estimated Glomerular Filtration Rate (calc) >60 mL/min/1.73m2 [facility] > OR = 60 Normal creatinine, serum 1.14 mg/dL [facility] 0.76-1.46 Normal urea nitrogen, blood 15 mg/dL [facility] 7-25 Normal blood glucose, random 100 mg/dL [facility] 65-99 High thyroid stimulating hormone, serum 1.06 u[IU]/mL [facility] 0.40-4.50 Normal free thyroxine index 2.5 [facility] 1.4-3.8 Normal thyroxine, serum, total 8.7 ug/dL [facility] 4.5-12.5 Normal triiodothyronine resin uptake 29 % [facility] 22-35 Normal cholesterol/HDL ratio, serum, percent 3.2 (calc) [facility] < OR = 5.0 Normal LDL cholesterol, serum 95 MG/DL (CALC) [facility] <130 Normal triglyceride, serum, fasting 131 mg/dL [facility] <150 Normal HDL cholesterol, serum 54 mg/dL [facility] > OR = 40 Normal cholesterol, serum 175 mg/dL [facility] 125-200 Normal HISTORY OF MEDICATION USE Medication Status Instructions Dates Provider Indications Com ments metformin 500 mg tablet active TAKE 1 TABLET TWICE A DAY Irving roel omeprazole 20 mg capsule,delayed release(DR/EC) active TAKE 1 CAPSULE BY MOUTH EVERY DAY DIRECTED Dariusz Bishop MD Pepcid 20 mg tablet active TAKE 1 TABLET BY MOUTH EVERY DAY Irving Ahmedconor metformin 500 mg tablet completed Take 1 tablet by mouth twice a day [facility] 500 mg tablet completed Take 1 tablet by mouth once a day - Irving Ahmedzai atorvastatin 40 mg tablet active TAKE 1 TABLET DAILY AT BEDTIME TO REPLACE SIMVASTATIN Jayne Montoya lisinopril 5 mg tablet active TAKE 1 TABLET DAILY Jayne Montoya atorvastatin 40 mg tablet completed Take 1 tablet by mouth every night - Luzma Genao tamsulosin 0.4 mg capsule active capsule by mouth once a day Toro Banks TOPROL XL 25 MG ORAL TABLET EXTENDED RELEASE 24 HOUR completed ONE TAB DAILY - Dariusz Bishop MD MULTIVITAMINS ORAL CAPSULE completed take one pill a day - Nevin Kern NABUMETONE 750 MG ORAL TABLET completed 1 tab twice daily - Jayne Montoya METOPROLOL TARTRATE 25 MG ORAL TABLET completed one tab. twice daily (take before going to sleep) - Dariusz Bishop MD lisinopril 5 mg tablet completed Take 1 tablet by mouth once a day - Toro Banks NORVASC 5 MG ORAL TABLET completed ONE TAB. DAILY - Dariusz Bishop MD aspirin 81 mg tablet,delayed release (DR/EC) active 1 tablet by mouth once a day Dariusz Bishop MD LISINOPRIL 10 MG ORAL TABLET completed ONE TAB. DAILY - Primo Wallis SIMVASTATIN 20 MG ORAL TABLET completed ONE TAB. DAILY - Tran Flores RN NORVASC 5 MG ORAL TABLET completed ONE TAB. DAILY - Dariusz Bishop MD AMLODIPINE BESYLATE 5 MG ORAL TABLET completed ONE TAB. DAILY (TO REPLACE CADUET) - Dariusz Bishop MD SIMVASTATIN 20 MG ORAL TABLET completed ONE TAB. DAILY (TO REPLACE CADUET) - Dariusz Bishop MD ASPIRIN 325 MG ORAL TABLET completed one tab daily - Dalia Delvalle MA AMIODARONE HCL 200 MG ORAL TABLET completed ONE TAB. DAILY - Dariusz Bishop MD SOCIAL HISTORY Date Observation Value Provider drug use none Irvingyi Powell alcohol use no Irvingyi Artis passive cigarette sm margaret exposure yes Irvingyi Artis smoking, year quit 1972 Irvingyi [facility] smoking history, tot al pack/year 3 Irvingyi Artis cigarette use yes Irvingyi Artis smoking status Former smoker Irving Powell [facility] Powell passive cigarette sm margaret exposure yes Irvingyi Powell smoking, year quit 1972 [facility] smoking history, tot al pack/year 3 Irvingyi Artis cigarette use yes Irvingyi Powell smoking status Former smoker Irving Powell i social history reviewed E&M revi ewed - no changes required [facility] E&M Marital Statu s: L simon with family/friends E thnicity: Smoking History: Aggie blanca is a former smoker. Irving Artis Exercise counseling yes Jayne cooley physical exercise, f requency, days per week no Jayne Montoya caffeine use, averag e drinks per day 0 /d Jayne Montoya passive cigarette sm margaret exposure yes Jayne Montoya smoking, year quit 1972 Jayne donald smoking history, tot al pack/year 3 Jayne Leer cigarette use yes Jayne cervantes smoking status Former smoker Jayne cabreraer social history reviewed E&M revi ewed - no changes required Irving Artis Exercise counseling yes Ayana Craig physical exercise, f requency, days per week no Ayana Lares caffeine use, averag e drinks per day 0 /d Ayana Lares passive cigarette sm margaret exposure yes Ayana Lares smoking, year quit 1972 Ayana dong smoking history, tot al pack/year 3 Ayana Lares cigarette use yes Ayana Lares smoking status Former smoker Ayanaama Lares social history reviewed E&M revi ewed - no changes required Irving Artis Exercise counseling yes Mary Ivan social history reviewed E&M revi ewed - no changes required Irving Artis social history E&M Marital Statu s: L simon with family/friends E thnicity: Smoking History: Aggie blanca is a former smoker. Irving Artis social history reviewed E&M revi ewed - no changes required Irving Artis physical exercise, f requency, days per week no Terese Oreilly caffeine use, averag e drinks per day 0 /d Terese Orielly passive cigarette sm margaret exposure yes Terese Oreilly smoking, year quit 1973 Terese olivares smoking history, tot al pack/year 3 Terese Oreilly cigarette use yes Terese saab smoking status Former smoker Terese sánchez smoking, year quit 1973 Smith Rea cigarette use yes Smith hutton social history E&M Marital Statu s: L simon with family/friends E thnicity: Smoking History: P atrolando is a former smoker. Smith Rea social history reviewed E&M revi ewed - no changes required Smith Rona physical exercise, f requency, days per week no Jayne Jan caffeine use, averag e drinks per day 0 /d [facility] passive cigarette sm margaret exposure yes Jayne Jan smoking status Former smoker Jayne Fernandezvida knapp social history E&M Marital Statu s: L simon with family/friends E thnicity: Smoking History: P evangelist is a former smoker. Dariusz Bishop MD social history reviewed E&M revi ewed - no changes required Dariusz Bishop MD physical exercise, f requency, days per week no Jayne Jan caffeine use, averag e drinks per day no Jaynewanye Montoya passive cigarette sm mragaret exposure yes Jayne Jan smoking status Former smoker Jayne Vick aria social history E&M Marital Statu s: L simon with family/friends E thnicity: Smoking History: P atrolando is a former smoker. Dariusz Bishop MD social history reviewed E&M revi ewed - no changes required Dariusz Bishop MD physical exercise, f requency, days per week no Tonsha Mohan caffeine use, averag e drinks per day no Tonsha Mohan passive cigarette sm margaret exposure yes Tonsha Mohan smoking status Former smoker [facility] social history E&M Marital Statu s: L simon with family/friends E thnicity: Smoking History: Aggie blanca is a former smoker. Dariusz Bishop MD social history reviewed E&M revi ewed - no changes required Dariusz Bishop MD physical exercise, f requency, days per week no Toro Banks caffeine use, averag e drinks per day no Toro Banks passive cigarette sm margaret exposure yes Toro Banks smoking status Former smoker Toro Jorgensen social history E&M Marital Statu s: L simon with family/friends E thnicity: Smoking History: Aggie blanca is a former smoker. Dariusz Bishop MD social history reviewed E&M revi ewed - no changes required Dariusz Bishop MD physical exercise, f requency, days per week no [facility] alcohol use, average drinks per day none [facility] alcohol use no [facility] caffeine use, averag e drinks per day no [facility] drug use none [facility] passive cigarette sm margaret exposure yes [facility] smoking status Former smoker [facility] social history E&M Marital Statu s: L simon with family/friends E thnicity: Smoking History: Aggie blanca is a former smoker. Dariusz Bishop MD social history reviewed E&M revi ewed - no changes required Dariusz Bishop MD physical exercise, f requency, days per week no Jayne Gruenenfdevoner alcohol use, average drinks per day none Jayne Gruenenfelder alcohol use no Jayne Gruenenfe lder caffeine use, averag e drinks per day no Jayne Gruenenfelder drug use none Jayne Gruenenfe lder passive cigarette sm margaret exposure yes Jayne Navanfelder smoking status Former smoker Jayne Vick nfeldfaustino social history reviewed E&M revi ewed - no changes required Dariusz Bishop MD social history E&M Marital Statu s: L simon with family/friends E thnicity: Smoking History: P evangelist is a former smoker. Dariusz Bishop MD physical exercise, f requency, days per week no Lisa Elidia alcohol use, average drinks per day none Lisa Elidia alcohol use no Lisa Elidia caffeine use, averag e drinks per day no Lisa Elidia drug use none Lisa Elidia passive cigarette sm margaret exposure yes Lisa Elidia smoking status Former smoker Lisa Elidia number of grandchildren Dariusz Bishop MD T alexis Bishop MD social history reviewed E&M revi ewed - no changes required Dariusz Bishop MD social history E&M Marital Statu s: L simon with family/friends E thnicity: Smoking History: Aggie blanca is a former smoker. Dariusz Bishop MD physical exercise, f requency, days per week no Toro Banks alcohol use, average drinks per day none Toro Banks alcohol use no Toro meyer caffeine use, averag e drinks per day no Toro Banks drug use none Toro Andrew nson passive cigarette sm margaret exposure yes Toro Banks smoking status Former smoker Toro Jorgensen social history reviewed E&M revi ewed - no changes required Dariusz Bishop MD physical exercise, f requency, days per week no Toro Banks alcohol use, average drinks per day none Toro Banks alcohol use no Toro meyer caffeine use, averag e drinks per day no Toro Banks drug use none Toro ayonon passive cigarette sm margaret exposure yes Toro Banks smoking status Former smoker Toro Jorgensen social history reviewed E&M revi ewed - no changes required Dariusz Bishop MD social history reviewed E&M revi ewed - no changes required Dariusz Bishop MD physical exercise, f requency, days per week no Toro Banks alcohol use, average drinks per day none Toro Banks alcohol use no Toro meyer caffeine use, averag e drinks per day no Toro Banks drug use none Toro meyer passive cigarette sm margaret exposure yes Toro Banks smoking status Former smoker Toro Jorgensen social history reviewed E&M revi ewed - no changes required Anali Dougherty smoking status Former smoker Anali mcguire social history reviewed E&M revi ewed - no changes required Daruisz Bishop MD social history reviewed E&M revi ewed - no changes required Dariusz Bishop MD social history reviewed E&M reviewed Dariusz Bishop MD passive cigarette sm margaret exposure yes Jayne Montoya drug use none Dariusz Bishop MD smoking history, tot al pack/year 3 Jayne Montoya smoking, year quit 1973 Jayne donald smoking status former smoker Jayne knapp social history reviewed E&M reviewed Dariusz Bishop MD smoking status never smoker Jhonatan small social history reviewed E&M reviewed Karo Wetzel MD passive cigarette sm margaret exposure no Karo Wetzel MD smoking/tobacco cess ation, patient education and counseling yes Karo Wetzel MD social history reviewed E&M reviewed Genaro Gaines RN smoking status never Mitesh Novoa rocael 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 social history reviewed E&M reviewed Maríadestiney Herber 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 social history reviewed E&M reviewed Dariusz Bishop MD social history reviewed E&M reviewed Dariusz Bishop MD social history reviewed E&M reviewed Genaro Gaines RN drug use none Dariusz Bishop MD social history E&M Marital Statu s: L simon with family/friends E thnicity: Genaro Gaines RN caffeine use, averag e drinks per day yes Genaro Gaines RN alcohol use, average drinks per day no Genaro Gaines RN smoking status Non-Smoker Genaro Gaines RN social history reviewed E&M reviewed Genaro Gaines RN physical exercise, f requency, days per week no [facility] caffeine use, averag e drinks per day no [facility] alcohol use, average drinks per day none [facility] smoking status Non-smoker [facility] MENTAL STATUS Date Observation Value Provider assessment of judgme nt and insight E&M Alert and oriented to time, place and person. Mood and affect are normal. Dariusz Bishop MD assessment of judgme nt and insight E&M Alert and oriented to time, place and person. Mood and affect are normal. Dariusz Bishop MD assessment of judgme nt and insight E&M Alert and oriented to time, place and person. Mood and affect are normal. Karo Wetzel MD assessment of judgme nt and insight E&M Alert and oriented to time, place and person. Mood and affect are normal. Genaro Gaines RN assessment of judgme nt and insight E&M Alert and oriented to time, place and person. Mood and affect are normal. Dariusz Bishop MD assessment of judgme nt and insight E&M Alert and oriented to time, place and person. Mood and affect are normal. Dariusz Bishop MD assessment of judgme nt and insight E&M Alert and oriented to time, place and person. Mood and affect are normal. Genaro Gaines RN assessment of judgme nt and insight E&M Alert and oriented to time, place and person. Mood and affect are normal. Genaro Gaines RN FAMILY HISTORY Family Member Condition Mother Family History Unkno wn Daughter Family History Unkno wn INSURANCE PROVIDERS Payer name Policy type / Coverage type [place] red republican ID [facility] [id number] 1 ADVANCE DIRECTIVES Name Date DISCUSSED - NO DECISION MADE TREATMENT PLAN Date Name Performer [id number],S, Irving Ahmedza i [id number],S, Irving Ahmedza i [id number],S, Irving Ahmedza i [id number],S, Irving Ahmedza i [id number],S, Irving Ahmedza i [id number],S, Irving Ahmedza i [id number],S, Irving Ahmedza i [id number],S, Irving Ahmedza i [id number],S, Irving Ahmedza i [id number],S, Irving Ahmedza i [id number],S, Irving Ahmedza i [id number],S, Irving Ahmedza i [id number],S, Irvnig Ahmedza i [id number],S, Irving Ahmedza i [id number],S, Irving Ahmedza i [id number],S, Irving Ahmedza i [id number],S, Irving Ahmedza i [id number],S, Irving Ahmedza i [id number],S, Irving Cookmedza i [id number],S, Irving Cookmedza i [id number],S, Irving Cookmedza i [id number],S, Irving Cookmedza i [id number],S, Irving Cookmedza i [id number],S, Irving Cookmedza i [id number],S, Irving Cookmedza i [id number],S, Irving Cookmedza i [id number],S, Irving Cookmedza i [id number],S, Irving Cookmedza i Telehealth Dariusz Bishop MD Telehealth: H is updated medication list for this problem includes: Atorvastatin 40 Mg Tablet (Atorvastatin) ..... Take 1 tablet daily at bedtime to replace simvastatin Dariusz Bishop MD Telehealth Dariusz Bishop MD Telehealth: H is updated medication list for this problem includes: Lisinopril 5 Mg Tablet (Lisinopril) ..... Take 1 tablet daily Aspirin 81 Mg Tablet,delayed Release (dr/ec) (Aspirin) ..... 1 tablet by mouth once a day Dariusz Bishop MD Telehealth Dariusz Bishop MD Telehealth Dariusz Bishop MD Telehealth Dariusz Bishop MD Cardiology: O rders: C XR- PA/Lat ([id number]) Irving Artis [facility] Irving Artis Cardiology: H is updated medication list for this problem includes: Aspirin 81 Mg Tablet,delayed Release (dr/ec) (Aspirin) ..... 1 tablet by mouth once a day Irving medzai Cardiology: B P today: 142/84 P rior BP: 130/71 (09/16/2023) Prior 10 Yr Risk Heart Disease: Not enough information (08/27/2022) Labs Reviewed: C reat: 1.08 (04/15/2019) Chol: 129 (04/15/2019) HDL: 45 (04/15/2019) LDL: 68 (04/15/2019) T (04/15/2019) His updated medication list for this problem includes: Lisinopril 5 Mg Tablet (Lisinopril) ..... Take 1 tablet daily Aspirin 81 Mg Tablet,delayed Release (dr/ec) (Aspirin) ..... 1 tablet by mouth once a day Orders: Margie omplete Echo ([id number]) Irving medzai Cardiology Irving medzai Cardiology: O rders: C omplete Echo ([id number]) [facility] H is updated medication list for this problem includes: Atorvastatin 40 Mg Tablet (Atorvastatin) ..... Take 1 tablet daily at bedtime to replace simvastatin Irving Ahmedzai Cardiology Irving Ahmedzai [facility]iology Irving Ahmedzai [facility] Irving Ahmedzai [facility] Irving Ahmedzai [facility] Irving Ahmedzai [facility] Irving Ahmedzai [facility] Irving Ahmedzai [facility] Irving Ahmedzai [facility] Irving Ahmedzai [facility] Irving Ahmedzai [facility] Irving Ahmedzai [facility] Irving Ahmedzai [facility] Irving Ahmedzai [facility] Irving Ahmedzai [facility] Irving Ahmedzai [facility] Irving Ahmedzai [facility] Irving Ahmedzai [facility] Irving Ahmedzai [facility] Irving Ahmedzai [facility] Irving Ahmedzai [facility] Irving Ahmedzai [facility] Irving Ahmedzai [facility] Irving Ahmedzai [facility] Irving Ahmedzai [facility] Irving Ahmedzai Cardiology follow up Irving Ahmedz ai Cardiology follow up Irving Ahmedz ai Cardiology follow up Irving Ahmedz ai Cardiology follow up Irving Ahmedz ai [facility] Follow up To ollie Bishop [facility] Follow up To ollie Bishop [facility] Follow up To ollie Bishop [facility] Follow up :Encouraged pt to continue to be active and build his effort tolerance. Cath was normal. Dariusz Bishop MD [facility] Follow up :Margie briggs cervical spine Xray. Dariusz Bishop MD Cardiology Dariusz Bishop MD Cardiology Dariusz Bishop MD Cardiology Dariusz Bishop MD Cardiology Dariusz Bishop MD Cardiology:Will check a 48 hour Holter. Dariusz Bishop MD Cardiology Dariusz Bishop MD Cardiology: H is updated medication list for this problem includes: Lipitor 40 Mg Oral Tablet (Atorvastatin calcium) ..... One tab daily at bedtime to replace simvastatin Dariusz Bishop MD Cardiology: B P today: 117/75 P rior BP: 124/76 (04/14/2019) Prior 10 Yr Risk Heart Disease: 11 % (09/19/2011) Labs Reviewed: C reat: 1.08 (04/15/2019) C hol: 129 (04/15/2019) HDL: 45 (04/15/2019) Dariusz Bishop MD Cardiology:Continue CPAP Dariusz Bishop MD Cardiology Dariusz Bishop MD Cardiology Dariusz Bishop MD Cardiology Dariusz Bishop MD Cardiology Dariusz Bishop MD Cardiology Dariusz Bishop MD Cardiology Follow up Dariusz pinto MD Cardiology Follow up : n o recurrences. Dariusz Bishop MD Cardiology Follow up : B P today: 120/80 P rior BP: 112/70 (05/19/2018) Dariusz Bishop MD Cardiology Follow up Dariusz pinto MD Cardiology Follow up Dariusz pinto MD Cardiology Follow up Dariusz pinto MD Cardiology follow up Dariusz pinto MD Cardiology follow up Dariusz pinto MD Cardiology follow up Dariusz pinto MD Cardiology follow up Tonijoe pinto MD Cardiology follow up Dariusz pinto MD Cardiology:LDL 77. Dariusz Bishop MD Cardiology Dariusz Bishop MD Cardiology:Needs set tings updated. Will do home sleep study. Dariusz Bishop MD Cardiology:Most recent A1c 5.8. Dariusz Bishpo MD Cardiology Dariusz Bishop MD Cardiology Dariusz Bishop MD Cardiology Dariusz Bishop MD Cardiology Dariusz Bishop MD Cardiology Dariusz Bishop MD Cardiology Dariusz Bishop MD Cardiology Dariusz Bishop MD Cardiology Dariusz Bishop MD Cardiology Dariusz Bishop MD Cardiology Dariusz Bishop MD Cardiology Dariusz Bishop MD Cardiology Dariusz Bishop MD Cardiology Dariusz Bishop MD Cardiology Dariusz Bishop MD Cardiology Dariusz Bishop MD follow up: H is updated medication list for this problem includes: Aspirin 325 Mg Tabs (Aspirin) ..... Take one pill a day Toprol Xl 25 Mg Tb24 (Metoprolol succinate) ..... One tab daily Lisinopril 5 Mg Tabs (Lisinopril) ..... One tab. daily BP today: 147/88 P rior BP: 137/87 (08/23/2014) Prior 10 Yr Risk Heart Disease: 11 % (09/19/2011) Labs Reviewed: C reat: 1.11 (06/24/2014) C hol: 177 (04/13/2014) HDL: 56 (02/23/2013) LDL: 103 (04/13/2014) T (02/23/2013) Dariusz Bishop MD Follow up: H is updated medication list for this problem includes: Aspirin 325 Mg Tabs (Aspirin) ..... Take one pill a day Lisinopril 5 Mg Tabs (Lisinopril) ..... One tab. daily Metoprolol Tartrate 25 Mg Tabs (Metoprolol tartrate) ..... One tab. twice daily (take before going to sleep) Dariusz Bishop MD Follow up: H is updated medication list for this problem includes: Aspirin 325 Mg Tabs (Aspirin) ..... Take one pill a day Metoprolol Tartrate 25 Mg Tabs (Metoprolol tartrate) ..... One tab. twice daily (take before going to sleep) BP today: 130/78 Prior BP: 123/77 (12/29/2012) H gb: 15.6 (10/06/2009) HCT: 46.1 (10/06/2009) Platelets: 109 THOUSAND/UL (06/27/2009) R BC: 5.19 (10/06/2009) WBC: 4.5 (10/06/2009) B UN: 20.4 (12/07/2011) Creat: 1.09 (02/23/2013) Glucose: 91 (12/07/2011) N a+: 143 (02/23/2013) K+: 4.4 (02/23/2013) Cl: 104 (12/07/2011) Calcium: 9.3 (12/07/2011) Mg++: 2.1 (12/07/2011) T SH: 2.07 (12/07/2011) T3 (total): 139 (12/07/2011) T4 (total): 8.5 (12/07/2011) N uclear Stress Findings: EF - 58%. N o EKG changes diagnostic for ischemia. N ormal perfusion scan. (12/25/2007) Dariusz Bishop MD Follow up: H is updated medication list for this problem includes: Aspirin 325 Mg Tabs (Aspirin) ..... Take one pill a day Lisinopril 5 Mg Tabs (Lisinopril) ..... One tab. daily BP today: 130/78 Prior BP: 123/77 (12/29/2012) Labs Reviewed: C reat: 1.09 (02/23/2013) Dariusz Bishop MD Follow up: H is updated medication list for this problem includes: Simvastatin 20 Mg Tabs (Simvastatin) ..... One tab. daily BP today: 130/78 Prior BP: 123/77 (12/29/2012) C HOL: 184 (02/23/2013) LDL: 107 (02/23/2013) HDL: 56 (02/23/2013) T (02/23/2013) C HOL (goal): 200 (09/19/2011) LDL (goal): 100 (09/19/2011) HDL (goal): 40 (09/19/2011) TG (goal): 150 (09/19/2011) Dariusz Bishop MD follow up: H is updated medication list for this problem includes: Aspirin 81 Mg Tabs (Aspirin) ..... One tab. daily Lisinopril 5 Mg Tabs (Lisinopril) ..... One tab. daily Metoprolol Tartrate 25 Mg Tabs (Metoprolol tartrate) ..... One tab. twice daily (take before going to sleep) BP today: 123/77 Prior BP: 126/85 (05/16/2012) N uclear Stress Findings: EF - 58%. N o EKG changes diagnostic for ischemia. N ormal perfusion scan. (12/25/2007) C HOL: 169 (09/19/2011) LDL: 100 (09/19/2011) HDL: 46 (09/19/2011) T (09/19/2011) H gb: 15.6 (10/06/2009) HCT: 46.1 (10/06/2009) Platelets: 109 THOUSAND/UL (06/27/2009) R BC: 5.19 (10/06/2009) WBC: 4.5 (10/06/2009) B UN: 20.4 (12/07/2011) Creat: 1.50 (12/07/2011) Glucose: 91 (12/07/2011) N a+: 141 (12/07/2011) K+: 4.3 (12/07/2011) Cl: 104 (12/07/2011) TSH: 2.07 (12/07/2011) T3 (total): 139 (12/07/2011) T4 (total): 8.5 (12/07/2011) Dariusz Bishop MD follow up: H is updated medication list for this problem includes: Aspirin 81 Mg Tabs (Aspirin) ..... One tab. daily Metoprolol Tartrate 25 Mg Tabs (Metoprolol tartrate) ..... One tab. twice daily (take before going to sleep) BP today: 123/77 Prior BP: 126/85 (05/16/2012) H gb: 15.6 (10/06/2009) HCT: 46.1 (10/06/2009) Platelets: 109 THOUSAND/UL (06/27/2009) R BC: 5.19 (10/06/2009) WBC: 4.5 (10/06/2009) B UN: 20.4 (12/07/2011) Creat: 1.50 (12/07/2011) Glucose: 91 (12/07/2011) N a+: 141 (12/07/2011) K+: 4.3 (12/07/2011) Cl: 104 (12/07/2011) Calcium: 9.3 (12/07/2011) Mg++: 2.1 (12/07/2011) T SH: 2.07 (12/07/2011) T3 (total): 139 (12/07/2011) T4 (total): 8.5 (12/07/2011) N uclear Stress Findings: EF - 58%. N o EKG changes diagnostic for ischemia. N ormal perfusion scan. (12/25/2007) Dariusz Bishop MD follow up: H is updated medication list for this problem includes: Simvastatin 20 Mg Tabs (Simvastatin) ..... One tab. daily Dariusz Bishop MD follow up: H is updated medication list for this problem includes: Aspirin 81 Mg Tabs (Aspirin) ..... One tab. daily Lisinopril 5 Mg Tabs (Lisinopril) ..... One tab. daily BP today: 123/77 Prior BP: 126/85 (05/16/2012) Labs Reviewed: C reat: 1.50 (12/07/2011) Dariusz Bishop MD follow up: H is updated medication list for this problem includes: Aspirin 81 Mg Tabs (Aspirin) ..... One tab. daily BP today: 100/64 Prior BP: 129/83 (06/26/2011) H gb: 15.6 (10/06/2009) HCT: 46.1 (10/06/2009) Platelets: 109 THOUSAND/UL (06/27/2009) R BC: 5.19 (10/06/2009) WBC: 4.5 (10/06/2009) B UN: 16 (10/06/2009) Creat: 1.24 (10/06/2009) Glucose: 88 (10/06/2009) N a+: 141 (10/06/2009) K+: 4.3 (10/06/2009) Cl: 102 (10/06/2009) Calcium: 9.8 (10/06/2009) TSH: 1.06 (06/27/2009) T4 (total): 8.7 (06/27/2009) N uclear Stress Findings: EF - 58%. N o EKG changes diagnostic for ischemia. N ormal perfusion scan. (12/25/2007) E chocardiogram: Normal left ventricular systolic function. Normal left ventricular size. Normal left ventricular wall thickness. Normal left ventricular diastolic function. Normal E/E` 7.0. Left ventricular ejection fraction is estimated at 70%. Mild enlargement of right ventricle. Normal right ventricular systolic function. There is non-specific thickening of the mitral valve leaflets. Chordal systolic anterior motion (NICHOLE) of the mitral valve leaflets is seen. Mild mitral valve regurgitation. - (07/10/2011) Dariusz Bishop MD follow up: T he following medications were removed from the medication list: Norvasc 5 Mg Tabs (Amlodipine besylate) ..... One tab. daily His updated medication list for this problem includes: Aspirin 81 Mg Tabs (Aspirin) ..... One tab. daily Lisinopril 5 Mg Tabs (Lisinopril) ..... One tab. daily BP today: 100/64 Prior BP: 129/83 (06/26/2011) N uclear Stress Findings: EF - 58%. N o EKG changes diagnostic for ischemia. N ormal perfusion scan. (12/25/2007) C HOL: 226 (10/06/2009) LDL: 150 (10/06/2009) HDL: 53 (10/06/2009) T (10/06/2009) H gb: 15.6 (10/06/2009) HCT: 46.1 (10/06/2009) Platelets: 109 THOUSAND/UL (06/27/2009) R BC: 5.19 (10/06/2009) WBC: 4.5 (10/06/2009) B UN: 16 (10/06/2009) Creat: 1.24 (10/06/2009) Glucose: 88 (10/06/2009) N a+: 141 (10/06/2009) K+: 4.3 (10/06/2009) Cl: 102 (10/06/2009) TSH: 1.06 (06/27/2009) T4 (total): 8.7 (06/27/2009) E chocardiogram: Normal left ventricular systolic function. Normal left ventricular size. Normal left ventricular wall thickness. Normal left ventricular diastolic function. Normal E/E` 7.0. Left ventricular ejection fraction is estimated at 70%. Mild enlargement of right ventricle. Normal right ventricular systolic function. There is non-specific thickening of the mitral valve leaflets. Chordal systolic anterior motion (NICHOLE) of the mitral valve leaflets is seen. Mild mitral valve regurgitation. - (07/10/2011) Dariusz Bishop MD follow up: T he following medications were removed from the medication list: Norvasc 5 Mg Tabs (Amlodipine besylate) ..... One tab. daily His updated medication list for this problem includes: Aspirin 81 Mg Tabs (Aspirin) ..... One tab. daily Lisinopril 5 Mg Tabs (Lisinopril) ..... One tab. daily BP today: 100/64 P rior BP: 129/83 (06/26/2011) Labs Reviewed: C reat: 1.24 (10/06/2009) C hol: 226 (10/06/2009) HDL: 53 (10/06/2009) LDL: 150 (10/06/2009) T (10/06/2009) Dariusz Bishop MD follow up: H is updated medication list for this problem includes: Aspirin 81 Mg Tabs (Aspirin) ..... One tab. daily Lisinopril 5 Mg Tabs (Lisinopril) ..... One tab. daily BP today: 100/64 Prior BP: 129/83 (06/26/2011) Labs Reviewed: C reat: 1.24 (10/06/2009) Dariusz Bishop MD follow up: T he following medications were removed from the medication list: Amiodarone Hcl 200 Mg Tabs (Amiodarone hcl) ..... One tab. daily His updated medication list for this problem includes: Aspirin 81 Mg Tabs (Aspirin) ..... One tab. daily Orders: E KG (CPT-70103) BP today: 129/83 Prior BP: 119/78 (08/22/2009) H gb: 15.6 (10/06/2009) HCT: 46.1 (10/06/2009) Platelets: 109 THOUSAND/UL (06/27/2009) R BC: 5.19 (10/06/2009) WBC: 4.5 (10/06/2009) B UN: 16 (10/06/2009) Creat: 1.24 (10/06/2009) Glucose: 88 (10/06/2009) N a+: 141 (10/06/2009) K+: 4.3 (10/06/2009) Cl: 102 (10/06/2009) Calcium: 9.8 (10/06/2009) TSH: 1.06 (06/27/2009) T4 (total): 8.7 (06/27/2009) N uclear Stress Findings: EF - 58%. N o EKG changes diagnostic for ischemia. N ormal perfusion scan. (12/25/2007) E chocardiogram: Normal left ventricular systolic function. Normal left ventricular size. Mild concentric left ventricular hypertrophy. E to A ratio is consistent with restrictive physiology. Normal E/E` 5.0. Left ventricular ejection fraction is estimated at 65%. The left atrium is normal in size. Normal pericardium with no significant pericardial effusion. Normal aortic root. No significant valvular abnormalities. (08/22/2009) Dariusz Bishop MD follow up: T he following medications were removed from the medication list: Norvasc 5 Mg Tabs (Amlodipine besylate) ..... One tab. daily His updated medication list for this problem includes: Lisinopril 10 Mg Tabs (Lisinopril) ..... One tab. daily Aspirin 81 Mg Tabs (Aspirin) ..... One tab. daily BP today: 129/83 Prior BP: 119/78 (08/22/2009) N uclear Stress Findings: EF - 58%. N o EKG changes diagnostic for ischemia. N ormal perfusion scan. (12/25/2007) C HOL: 226 (10/06/2009) LDL: 150 (10/06/2009) HDL: 53 (10/06/2009) T (10/06/2009) Hgb: 15.6 (10/06/2009) HCT: 46.1 (10/06/2009) Platelets: 109 THOUSAND/UL (06/27/2009) R BC: 5.19 (10/06/2009) WBC: 4.5 (10/06/2009) B UN: 16 (10/06/2009) Creat: 1.24 (10/06/2009) Glucose: 88 (10/06/2009) N a+: 141 (10/06/2009) K+: 4.3 (10/06/2009) Cl: 102 (10/06/2009) TSH: 1.06 (06/27/2009) T4 (total): 8.7 (06/27/2009) E chocardiogram: Normal left ventricular systolic function. Normal left ventricular size. Mild concentric left ventricular hypertrophy. E to A ratio is consistent with restrictive physiology. Normal E/E` 5.0. Left ventricular ejection fraction is estimated at 65%. The left atrium is normal in size. Normal pericardium with no significant pericardial effusion. Normal aortic root. No significant valvular abnormalities. GC (08/22/2009) Dariusz Bishop MD follow up: H is updated medication list for this problem includes: Lisinopril 10 Mg Tabs (Lisinopril) ..... One tab. daily Aspirin 81 Mg Tabs (Aspirin) ..... One tab. daily BP today: 129/83 Prior BP: 119/78 (08/22/2009) Labs Reviewed: C reat: 1.24 (10/06/2009) Dariusz Bishop MD follow up: T he following medications were removed from the medication list: Norvasc 5 Mg Tabs (Amlodipine besylate) ..... One tab. daily His updated medication list for this problem includes: Lisinopril 10 Mg Tabs (Lisinopril) ..... One tab. daily Aspirin 81 Mg Tabs (Aspirin) ..... One tab. daily BP today: 129/83 P rior BP: 119/78 (08/22/2009) Labs Reviewed: C reat: 1.24 (10/06/2009) C hol: 226 (10/06/2009) HDL: 53 (10/06/2009) LDL: 150 (10/06/2009) T (10/06/2009) Dariusz Bishop MD : H is updated medication list for this problem includes: Amiodarone Hcl 200 Mg Tabs (Amiodarone hcl) ..... One tab. daily BP today: 119/78 Prior BP: 128/80 (02/15/2009) H CT: 45.1 (06/27/2009) Platelets: 109 THOUSAND/UL (06/27/2009) R BC: 5.07 MILLION/UL (06/27/2009) BUN: 15 (06/27/2009) Creat: 1.14 (06/27/2009) Glucose: 100 (06/27/2009) N a+: 141 (06/27/2009) K+: 4.1 (06/27/2009) Cl: 105 (06/27/2009) Calcium: 9.3 (06/27/2009) TSH: 1.06 (06/27/2009) T4 (total): 8.7 (06/27/2009) N uclear Stress Findings: EF - 58%. N o EKG changes diagnostic for ischemia. N ormal perfusion scan. (12/25/2007) Dariusz Bishop MD : H is updated medication list for this problem includes: Caduet 5-10 Mg Tabs (Amlodipine-atorvastatin) ..... One tab. daily BP today: 119/78 Prior BP: 128/80 (02/15/2009) C HOL: 175 (06/27/2009) LDL: 95 MG/DL (CALC) (06/27/2009) HDL: 54 (06/27/2009) T (06/27/2009) Dariusz Bishop MD : B P today: 119/78 Prior BP: 128/80 (02/15/2009) N uclear Stress Findings: EF - 58%. N o EKG changes diagnostic for ischemia. N ormal perfusion scan. (12/25/2007) C HOL: 175 (06/27/2009) LDL: 95 MG/DL (CALC) (06/27/2009) HDL: 54 (06/27/2009) T (06/27/2009) H CT: 45.1 (06/27/2009) Platelets: 109 THOUSAND/UL (06/27/2009) R BC: 5.07 MILLION/UL (06/27/2009) BUN: 15 (06/27/2009) Creat: 1.14 (06/27/2009) Glucose: 100 (06/27/2009) N a+: 141 (06/27/2009) K+: 4.1 (06/27/2009) Cl: 105 (06/27/2009) TSH: 1.06 (06/27/2009) T4 (total): 8.7 (06/27/2009) Dariusz Bishop MD : H is updated medication list for this problem includes: Caduet 5-10 Mg Tabs (Amlodipine-atorvastatin) ..... One tab. daily BP today: 119/78 P rior BP: 128/80 (02/15/2009) & #13;Labs Reviewed: C reat: 1.14 (06/27/2009) C hol: 175 (06/27/2009) HDL: 54 (06/27/2009) LDL: 95 MG/DL (CALC) (06/27/2009) T (06/27/2009) Dariusz Bishop MD : H is updated medication list for this problem includes: Amiodarone Hcl 200 Mg Tabs (Amiodarone hcl) ..... One tab. daily Aspirin 325 Mg Tabs (Aspirin) ..... One tab daily BP today: 128/80 Prior BP: / () N uclear Stress Findings: EF - 58%. N o EKG changes diagnostic for ischemia. N ormal perfusion scan. (12/25/2007) Dariusz Bishop MD : H is updated medication list for this problem includes: Aspirin 325 Mg Tabs (Aspirin) ..... One tab daily Amlodipine Besylate 5 Mg Tabs (Amlodipine besylate) ..... One tab. daily (to replace caduet) BP today: 128/80 Dariusz Bishop MD : H is updated medication list for this problem includes: Aspirin 325 Mg Tabs (Aspirin) ..... One tab daily Amlodipine Besylate 5 Mg Tabs (Amlodipine besylate) ..... One tab. daily (to replace caduet) BP today: 128/80 Prior BP: / () N uclear Stress Findings: EF - 58%. N o EKG changes diagnostic for ischemia. N ormal perfusion scan. (12/25/2007) Orders: E KG (CPT-65995) Dariusz Bishop MD : H is updated medication list for this problem includes: Simvastatin 20 Mg Tabs (Simvastatin) ..... One tab. daily (to replace caduet) BP today: 128/80 Prior BP: / () Dariusz Bishop MD Date Name Stress Exercise Card iolite CXR- PA/Lat Complete Echo Monitor - Telemetry (Mobile Cardiac) Complete Echo X-Ray, Cervical Spin e COVID19 nasal swab ( LC) Covid Antibody IgA ( LC) Covid Antibody IgM ( LC) Holter Monitor 48 hr HEMOGLOBIN A1c TSH, 3RD GENERATION W/REFLEX TO FT4 CBC (INCLUDES DIFF/P LT) LIPID PANEL COMPREHENSIVE METABO LIC PANEL, W/EGFR Complete Echo Sleep Study Home Complete Echo THYROID PANEL WITH T SH, 3RD GENERATION CBC (H/H, RBC, INDIC ES, WBC, PLT) LIPID PANEL COMPREHENSIVE METABO LIC PANEL W/EGFR HISTORY OF PROCEDURES Procedure Date Procedure Name Provider Procedure Notes S tatus Complex e/m visit add on Dariusz Bishop MD completed EKG Dariusz Bishop MD completed EKG Dariusz Bishop MD completed EKG Dariusz Bishop MD completed EKG Dariusz Bishop MD completed EKG Dariusz Bishop MD completed SNOMED-CT: [id number] Current Medications Documented Dariusz Bishop MD completed Stress EKG Sandra Mercado MD complet ed Cardiolite, 2 units Sandra Mercado MD completed SPECT Images Sandra Mercado MD compl eted SNOMED-CT: [id number] Physical Exam, Performed: Pulse Exam of Foot Dariusz Bishop MD completed EKG Dariusz Bishop MD completed SNOMED-CT: [id number] Current Medications Documented Dariusz Bishop MD completed ZIO Patch Recording Dariusz Bishop MD completed SNOMED-CT: [id number] Current Medications Documented Dariusz Bishop MD completed SNOMED-CT: [id number] Physical Exam, Performed: Pulse Exam of Foot Dariusz Bishop MD completed SNOMED-CT: [id number] Physical Exam, Performed: Pulse Exam of Foot Dariusz Bishop MD completed SNOMED-CT: [id number] Current Medications Documented Dariusz Bishop MD completed SNOMED-CT: [id number] Physical Exam, Performed: Pulse Exam of Foot Dariusz Bishop MD completed EKG Dariusz Bishop MD completed SNOMED-CT: [id number] Current Medications Documented Dariusz Bishop MD completed EKG Dariusz Bishop MD completed EKG Dariusz Bishop MD completed EKG Karo workman MD completed Schedule Followup Karo brooks MD with DR. Bishop in 6 months completed Schedule Followup Karo brooks MD fu with in 3 months completed EKG Karo workman MD completed EKG Dariusz Bishop MD completed EKG Dariusz Bishop MD completed
--- OUTSIDE RECORDS SUMMARY | 2024-12-02 16:26 | XMS_ITS | Patient Health Summary ---
Author Organization [facility] Address [address] 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 This disclosure is being madepursuant to the Care Everywhere program and may not contain all information available regarding this patient. Last updated 18.[facility] Allergies No known active allergies Medications * Be aware that medications may not be up to date on this document. Alwaysverify current medications with the patient. * tamsulosin (FLOMAX) 0.4 MG capsule Take 1 capsule by mouth once daily * atorvastatin (LIPITOR) 40 MG tablet(Started 01/16/2022) Take 1 tablet by mouth once daily * lisinopril (PRINIVIL;ZESTRIL) 5 MG tablet Take 1 tablet by mouth once daily * tadalafil (CIALIS) 5 MG tablet Take 1 tablet by mouth once daily * ASPIRIN 81 PO Take 1 capsule by mouth once daily Active Problems No known active problems Immunizations * FLU VACCINE TRI IIV3 SPLIT IM (FLUVIRIN)(Given 08/24/2015) * INFLUENZA VACCINE, QUADR. (AFLURIA, FLUZONE QUADRIVALENT; 6MO+) (IIV4)(Given 09/04/2021, 08/15/2020, 09/01/2019, 09/30/2017, 10/04/2016) * INFLUENZA VACCINE, QUADR. (FLUZONE; FLULAVAL; FLUARIX; AFLURIA QUADRIVALENT; 6MO+), 0.5 ML (IIV4)(Given 08/19/2018) * PNEUMOCOCCAL PPV VACCINE(Given 02/17/2018) * TDAP, HISTORIC VACCINE(Given 04/13/2014) Social History Tobacco Use Types Packs/Day Years [...] Mass Index 37.51 03/19/2022 8:52 AM CDT Procedures * NE CTRL NOSEBLEED,ANTER,COMPLEX(Performed 03/19/2022) Performed for Prominent blood vessel, Epistaxis Results * NE CTRL NOSEBLEED,ANTER,COMPLEX (03/19/2022 10:06 AM CDT) Narrative Andre Ervin MD - 03/19/2022 10:06 AM CDT Andre Ervin MD ? 03/19/2022 10:08 AM Due to the findings on physical examination, in correlation with the patient's symptomatology, the decision was made to perform a procedure today in clinic. Consent obtained prior to starting procedure. Procedure Note: Pre Op Dx: Epistaxis, anterior, prominent blood vessel Post Op Dx: same Procedure performed: Control of nosebleed, anterior, complex Surgeon: Aziza Procedure in detail: Isael Gonzalez is a 66 year old male with a history of epistaxis who presented today with a chief complaint of bleeding from left nare(s). The risks, benefits, alternatives, and indications of the procedure were discussed in great detail and the patient understood these and wished to proceed. The patient has been unsuccessful in treating topically with moisturizing agents and pressure. First, the nose was inspected. There was a very prominent vessel identified in the region of Kesselbach's plexus and extending onto the left floor of the nose. These were cauterized using silver nitrate sticks. Bleeding was controlled with good hemostasis. The patient will continue to use topical moisturizing agents while healing. I (Dr. Ervin), was present for the entire procedure and can verify that the patient tolerated the procedure well. Andre Ervin MD PROCEDURE/MINOR OG RGICAL ORDERABLES Care Teams Hydroelectric Machinery Mechanic Relationship Specialty Start Date End Date Margareth Walker MD [address], [place] [id number] PCP - General 03/14/22
--- OUTSIDE RECORDS SUMMARY | 2024-12-02 16:26 | XMS_ITS | Data Portability ---
Author Organization [place] [facility], Main Office Address [address] [place] [address] Care Team Providers Care Specialist Physicians Name Role Phone TONY SOTO Primary Care Provider [phone] OTNY SOTO Referring Provider Assessment Encounter Date Assessment Date Assessment LastModified by Organization Details LastModified Time 03/26/2023 03/26/2023 The patient has flexor tenosynovitis of the left thumb with a clicking sensation through the arc of motion pain and tenderness here. He also has CMC arthrosis but this does not appear to be bothering him. We talked about treatment options today in detail he wanted proceed with cortisone oral prednisone as well. We will get him a prescription for this. Today in the office under sterile conditions I injected the patient's left thumb flexor tendon sheath at the base of the thumb A1 lina site region with 2 cc 0.5% ropivacaine and 10 mg of Kenalog. Patient tolerated procedure well. I will see him back in a month after he is done with the prednisone he is going to take ibuprofen as needed use ice and activity modification as well. He voiced understanding agrees above plan will call for any further problems difficulties or questions. Hopefully we will avoid surgical intervention as his symptoms are not severe at this time and hopefully we can calm it down with conservative measures. Not available 03/26/2023 09:34:43 04/22/2023 04/22/2023 The patient has resolving flexor tenosynovitis of the left thumb overall treatment has worked well for him. He is telling me today he does not need any other further treatment options he has a refill on his prednisone pills he can take this at any time if his symptoms start to come back. If his symptoms come back in stapler system we could try another shot of cortisone we have talked about surgical options in detail today as well. For now I will see him back as needed he has done well with previous treatment he voiced understanding and agrees with above plan call for any further problems difficulties or questions. 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 We talked about treatment options today in detail he wanted to try 1 more shot of cortisone therefore under sterile conditions I injected the patient's left thumb into the flexor tendon sheath at the base of the thumb with 2 cc of 0.5% bupivacaine and 10 mg of Kenalog. Patient tolerated the procedure well. He has a refill on his old prednisone prescription he can use this again as well we talked about this or oral anti-inflammator y medication ice and activity modification if necessary. If his symptoms worsen or change he will call. I will see him back as needed. There are surgical options but I told him typically reserve those for when he has gigi locking catching we will see how he does with treatment once again he voiced understanding and agrees above plan. Not available 10/01/2023 09:15:21 Plan of Treatment Reminders Order Date Submit Date Provider Last Modified By Organization Details Last Modified Time Details Appointments None recorded. Lab None recorded. Referral None recorded. Procedures injection/a spiration joint/bursa (PROC) - in office procedure, administere d by provider 2022 023 [email or web address] In-Office Order, Internal Use Only DO Not Attach Compendium DO Not Attach Compendium, Do Not Delete/merge, [id number] 09:25:30 injection/a spiration joint/bursa (PROC) 2022 023 [email or web address] In-Office Order, Internal Use Only DO Not Attach Compendium DO Not Attach Compendium, Do Not Delete/merge, [id number] 3 09:09:17 Surgeries None recorded. Imaging None recorded. Medication Orders Kenalog 10 mg/mL suspension for injection 2022 023 [id number], [address], [place], [place], [id number], 3 09:39:09 ropivacaine (PF) 5 mg/mL (0.5 %) injection solution [address] [id number], [address], [place], [place], [id number], 3 09:39:09 prednisone 10 mg tablets in a dose pack [address] [id number], [address], [place], [place], [id number], 3 09:39:09 bupivacaine HCl 0.5 % (5 mg/mL) injection solution [address] [facility]84366, [address], [place], [place], [id number], 3 10:06:17 Kenalog 10 mg/mL suspension for injection [address] [id number], [address], [place], [place], [id number], 3 10:06:17 Patient TargetsNo targets recorded. Patient InstructionsNo instructions recorded. Reason for Referral None Reported. Results Created Date Observation Date Name Description Value Unit Range Abnormal Flag Note LastModifiedBy Organization Detail LastModifiedTime 03/19/20 23 02/19/2023 XR, hand No observ ation record ed. [email or web address] Not Available 03/04 17:09:23 Result Notes None recorded. Problems Name Problem SNOMED Code Status Onset Date Resolution Date Notes Provider Name and Address Organization Details Recorded Time Pigmented skin lesion 659341894 Active 2018 Not Available [facility] 3 15:40:20 Hypertensi ve disorder 41123477 Active Not Available [facility] 3 15:40:20 Cyst of breast 081816215 Active 2 to 3 month Not Available [facility] 3 15:40:20 Pain of left hand 6444003838588 03 Active 2022 Marcela Wheeler RMJanes null, [facility] 3 09:14:28 Trigger thumb of left hand 3994954980693 07 Active 2022 Rosita LinkCAMMIE workman null, [facility] 3 09:24:27 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 Procedures Surgical History None recorded. Imaging Results Imaging Date Name Status LastModified by Organiz ation Details LastModified Time 02/19/2023 XR, hand completed [email or web address] Information n ot available 03/19/2023 17:09:23 Procedure Notes None recorded. Medical Equipment None Reported. Allergies No known drug allergies Medications Name Sig Start Date Stop Date Status Note LastModified by Organization Details LastModified Time atorvastati n 40 mg tablet active Not Available Not Available Not Available metformin 500 mg tablet TAKE 1 TABLET BY MOUTH EVERY DAY active Not Available Not Available No t Available prednisone 10 mg tablet TAKE 1 TABLET BY MOUTH THREE TIMES DAILY FOR 3 DAYS 1 TABLET TWICE DAILY FOR 2 DAYS 1 TABLET EVERY DAY FOR 1 DAY active Not Available Not Available No t Available Toprol XL 25 mg tablet,exte nded release active Not Available Not Available Not Available hydrocodone 5 mg-acetamin ophen 325 mg tablet 03/26 completed Not Available Not Available Not Available bupivacaine HCl 0.5 % (5 mg/mL) injection solution Take 10 mg by injection route. 2022 active Not Available Not Available Not Avai lable acetaminoph en 300 mg-codeine 30 mg tablet 03/26 completed Not Available Not Available Not Available ciprofloxac in 500 mg tablet 03/26 completed Not Available Not Available Not Available prednisone 10 mg tablets in a dose pack Take 1 tab by mouth, 3 times a day for 3 daysTake 1 tab by mouth 2 times a day for 2 daysTake 1 tab by mouth once a day for 1 day 2022 active Not Available Not Available Not Avai lable oxycodone-a cetaminophe n 5 mg-325 mg tablet 03/26 completed Not Available Not Available Not Available tamsulosin 0.4 mg capsule active Not Available Not Available Not Available Kenalog 10 mg/mL suspension for injection Take 10 mg by injection route. 2022 active [facility]: 0003- 0494- 20 Not Available Not Available Not Available cephalexin 500 mg capsule 03/26 completed Not Available Not Available Not Available simvastatin 20 mg tablet 03/26 completed Not Available Not Available Not Available clotrimazol e-betametha sone 1 %-0.05 % topical cream 03/26 completed Not Available Not Available Not Available lisinopril 5 mg tablet active Not Available Not Available Not Available scopolamine 1 mg over 3 days transdermal patch APPLY 1 PATCH TOPICALLY TO THE SKIN EVERY 72 HOURS FOR 12 DAYS NEEDED active Not Available Not Available No t Available amoxicillin 875 mg-potassiu m clavulanate 125 mg tablet 03/26 completed Not Available Not Available Not Available tadalafil 5 mg tablet active Not Available Not Available No t Available metoprolol tartrate 2012 active Not Available Not Available Not Avai lable Aspir-81 2018 active Not Available Not Available Not Avai lable simvastatin 2012 active Not Available Not Available Not Avai lable lisinopril 2012 active Not Available Not Available Not Avai lable ropivacaine (PF) 5 mg/mL (0.5 %) injection solution Take 10 mg by injection route. 2022 active [facility] 73910 -[phone]- 01 Not Available Not Available Not Available [employer] COVID-19 Antigen Home Test kit active Not Available Not Available Not Available Vitals Date Recorded Body height Body mass index (BMI) Body weight Provider Name and Address Organization Details Last Updated DateTime 03/26/2023 175.26 cm 36.9 kg/m2 998530.09 g SANTINO Tomlinson [place] [facility] [employer] [facility] 03/26/2023 09:11:18 Date Recorded Body height Body mass index (BMI) Body weight Provider Name and Address Organization Details Last Updated DateTime 04/22/2023 175.26 cm 36.5 kg/m2 556074.32 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 [employer] 03/26/2023 09:13:26 What Is Your Level Of Alcohol Consumption? 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 Mental Status None recorded. Family History Relationship Description Onset Age of this Age Resolved Age Notes LastModified by Organization Details LastModified Time Father Hypertensive disorder [email or web address] Not available 2022 09:13:05 Mother Hypertensive disorder Not available 2022 09:13:05 Medical History Condition Response DIABETES, TYPE Y Past Encounters Encounter ID Performer Location Encounter Start Date Encounter Closed Date Diagnosis/Indication Diagnosis SNOMED-CT Code Diagnosis ICD10 Code Diagnosis Note [id number] MAURA Vasquez[facility] [address] [address] 03/26/2023 08:49:43 03/26/2023 09:38:21 Pain of left hand 1545455493 79088 M79.642 Trigger th umb of left hand 3875012934 64078 M65.312 Osteoarthr osis of the carpometacarpal joint of the thumb 45079638 M18.12 [id number] MAURA Vasquez [facility] [address] [place] [address] 04/22/2023 08:51:18 04/22/2023 11:12:38 Pain of left hand 1251561622 86205 M79.642 Trigger th umb of left hand 2380864321 73244 M65.312 Osteoarthr osis of the carpometacarpal joint of the thumb 10900705 M18.12 [id number] MAURA Vasquez [facility] [address] [place] [address] 10/01/2023 08:51:05 10/01/2023 09:14:20 Trigger thumb of left hand 9264763009 56136 M65.312 Osteoarthr osis of the carpometacarpal joint of the thumb 57680717 M18.12 Pain of left hand 299164 6438 30405 M79.642 Health Concerns Section Related Observation LastModified by Organization Detai ls LastModified Time None Recorded Concern Status LastModified by Organization Details LastModified Time None Recorded Advance Directives Directive None Recorded Payers Encounter Date Sequence Insurance Name Policy Number Policy Mehta Covered Member ID Mehta Member ID Guarantor Name 03/26/2023 1 [place] [id number] Zorobabel Carlos [id number] Zorobabel Gonzalez 04/22/2023 1 [place] [id number] Zorobabel Carlos [id number] Zorobabel Gonzalez 10/01/2023 1 [place] [id number] Zorobabel Gonzalez [id number] Zorobabel Gonzalez Notes Date Note Type Note Provider Name and Address Organization Details Recorded Time 3 text/html Patient is a 67-year-old male who presents with left thumb pain. He states has been ongoing for couple of months now localizes most the pain to the flexor tendon sheath at the base of the left thumb. He had tried some ibuprofen and activity modification it mainly bothers him when he tries to do anything heavy repetitive with the thumb he reports a clicking sensation but no gigi locking or catching. Denies any specific trauma or injury. Saw his primary care physician who had ordered x-rays x-rays demonstrated advanced CMC arthrosis at the basilar thumb joint but states he really does not have any pain here. Pain is localized more to the flexor tendon sheath, he denies any pain in the basilar thumb joint with pinching or gripping and states prior to couple of months ago his thumb has never really bothered him before. Denies any other specific remote trauma or injury denies any numbness or tingling no effusion or swelling. He comes in today for initial evaluation treatment after failing conservative measures. I have reviewed the x-rays in detail today with the patient and agree with the above findings. There is no other acute trauma noted the metacarpophalangeal joint of the thumb looks okay.Past medical history sheet was reviewed and signed on intake sheet today's date drug allergies current medications family social history previous surgical history 10 point review of systems was reviewed and discussed in detail today with the patient. MAURA Vasquez [address], [facility] [address], [place], [address], [employer] 03/26/2023 09:35:37 3 text/html patient returns for recheck of his left thumb. Last time I saw him he had flexor tenosynovitis with clicking catching pain and tenderness at the flexor tendon sheath. We gave a shot of cortisone in some oral prednisone he states that treatment has given him about 50% relief at least to the point where he no longer has the locking catching that he had previously. The pain has pretty much calmed down he thinks it is livable for him. We did talk about further treatment options today in detail he has declined for the most part he can get through the day without any significant symptoms and is quite pleased with the results so far. MAURA Vasquez [address], [facility] [address], [place], [address], [employer] 04/22/2023 09:36:08 3 text/html Patient returns complaining of left thumb pain. I have not seen him since April of this year for a follow-up for a left trigger thumb 1 shot of cortisone and oral prednisone gave him excellent relief he states he did not need any further treatment after that and we have not seen him back in tell now. He returns today stating that the pain is coming back with occasional catching sensation in the left thumb flexor tendon sheath. Denies any specific trauma or injury nothing that he can think of that has started up. His old symptoms are coming back. Despite conservative measures on his own at home his symptoms continue. It is quite tender in the flexor tendon sheath at the base of the thumb no effusion or swelling no dysfunction otherwise. He comes in today to talk about treatment once again for flexor tenosynovitis of the left thumb. MAURA Vasquez [address] [place] [address], [place] [address], [place], [address], [place] [facility] 10/01/2023 09:15:31
--- OUTSIDE RECORDS SUMMARY | 2024-12-02 16:26 | XMS_ITS | Referral Summary ---
Author Organization [facility] Address [address] [place] [address] Care Team Providers Care Carrot Grader Inspector Name Role Phone Margareth Walker MD Primary Care Provider Source Comments [facility],non-owned Affiliates and Associated Physician Practices is amultiple site organization consisting of ambulatory clinics and hospital sitesin [place], [place], [place] and [place]. This disclosure is being madepursuant to the Care Everywhere program and may not contain all information available regarding this patient. Last updated 18.[facility] Allergies No known active allergies Medications * [...] 03/19/2022 8:52 AM CDT Plan of Treatment Not on file Care Teams Carrot Grader Inspector Relationship Specialty Start Date End Date Margareth Walker MD [address] [place], [place] [phone] PCP - General 03/14/22
[2024-12-02 17:41] LABS: Iron 77 ug/dL (49-181)
[2024-12-02 17:51] LABS: Percent Iron Saturation 31 % (20-50)
[2024-12-02 18:01] LABS: Alanine Aminotransferase 24 U/L (6-50); Albumin Level 4.4 g/dL (3.5-5.1); Alkaline Phosphatase 126 U/L (38-126); Anion Gap 9 mmol/L (4-12); Aspartate Amino Transferase 29 U/L (17-59); Bilirubin,Total 0.8 mg/dL (0.2-1.3); Blood Urea Nitrogen 13 mg/dL (9-20); Calcium 9.8 mg/dL (8.4-10.2); Carbon Dioxide 28 mmol/L (22-30); Chloride 104 mmol/L (98-107); Estimated Glomerular Filt Rate > 60; Glucose 115 mg/dL (65-110); Potassium 3.7 mmol/L (3.4-5.0); Sodium 141 mmol/L (137-145)
== END 2024-12-02 15:42 | disposition home or self-care (01) ==
PROVIDERS: PCP Internal Medicine Infectious Disease; Visit Provider Internal Medicine Hematology & Oncology
DX: D69.59 Other secondary thrombocytopenia (principal)
CPT/HCPCS: 36415; 80053; 82728; 83540; 83550; 85025